=== PATIENT | female | born 1950 | race African-American/Black ===

== ENCOUNTER → 2016-07-15 | Outpatient (CLI) | payer BC | LOC: WI 09:28 | PROVIDERS: ATTEND Internal Medicine | DX: Z12.31 Encounter for screening mammogram for malignant neoplasm of breast (principal) | CPT/HCPCS: 77067; G0202 ==

== ENCOUNTER → 2016-07-19 | Outpatient (CLI) | payer BC | LOC: RAD 10:38 | PROVIDERS: ATTEND Internal Medicine | DX: R94.4 Abnormal results of kidney function studies (principal) | CPT/HCPCS: 76770 ==

== ENCOUNTER 2017-05-27 21:46 | Emergency (ER) | payer OTHER, MEDICARE ==
[2017-05-27] MEDS ORDERED: METHYLPREDNISOLONE ACETATE INJ 80 MG/1 ML VIAL IM PRN (22:55)
[2017-05-27] MEDS ORDERED: DIPHENHYDRAMINE HCL 50 MG/ML VIAL IM ONE (22:55)
--- NOTE | 2017-05-27 22:58 | ER Document Report ---
ED Allergic Reaction - General Chief Complaint: Allergic Reaction Stated Complaint: FACE SWELLING Time Seen by Provider: 05/27/17 22:26 Mode of Arrival: Ambulatory Information source: Patient Notes: 66 years old female who had an allergic reaction to lisinopril, with angioedema of the face and lips, was seen at the [facility] and given Solu-Medrol this morning. She returned saying that this evening the swelling has increased in size with swelling of both cheeks. But no difficulty in breathing no wheezing no other constitutional symptoms. TRAVEL OUTSIDE OF THE [place] IN LAST 30 DAYS: No - Related Data Allergies/Adverse Reactions: Iodine and Iodide Containing Produc Allergy (Verified 05/27/17 22:53) Past Medical History - General Information source: Patient - Social History Smoking Status: Never Smoker Chew tobacco use (# tins/day): No Frequency of alcohol use: Social Drug Abuse: None Family History: Reviewed & Not Pertinent Patient has suicidal ideation: No Patient has homicidal ideation: No - Past Medical History Cardiac Medical History: Reports: Hx Hypertension Pulmonary Medical History: Reports: Hx Asthma, Hx Bronchitis, Hx COPD, Hx Respiratory Failure Endocrine Medical History: Reports: Hx Hypothyroidism Renal/ Medical History: Denies: Hx Peritoneal Dialysis Musculoskeltal Medical History: Reports Hx Arthritis Past Surgical History: Reports: Hx Cholecystectomy - Immunizations Immunizations up to date: Yes Review of Systems - Review of Systems Notes: REVIEW OF SYSTEMS: CONSTITUTIONAL : Denies fever, chills, or sweats. Denies recent illness. EENT: Denies eye, ear, throat, or mouth pain or symptoms. Denies nasal or sinus congestion or discharge. Denies throat, tongue, or mouth swelling or difficulty swallowing. CARDIOVASCULAR: Denies chest pain. Denies palpitations or racing or irregular heart beat. Denies ankle edema. RESPIRATORY: Denies cough, cold, or chest congestion. Denies shortness of breath, difficulty breathing, or wheezing. GASTROINTESTINAL: Denies abdominal pain or distention. Denies nausea, vomiting , or diarrhea. Denies blood in vomitus, stools, or per rectum. Denies black, tarry stools. Denies constipation. GENITOURINARY: Denies difficulty urinating, painful urination, burning, frequency, blood in urine, or discharge. FEMALE GENITOURINARY: Denies vaginal bleeding, heavy or abnormal periods, irregular periods. Denies vaginal discharge or odor. MUSCULOSKELETAL: Denies back or neck pain or stiffness. Denies joint pain or swelling. SKIN: Denies rash, lesions or sores. HEMATOLOGIC : Denies easy bruising or bleeding. LYMPHATIC: Denies swollen, enlarged glands. NEUROLOGICAL: Denies confusion or altered mental status. Denies passing out or loss of consciousness. Denies dizziness or lightheadedness. Denies headache. Denies weakness or paralysis or loss of use of either side. Denies problems with gait or speech. Denies sensory loss, numbness, or tingling. Denies seizures. PSYCHIATRIC: Denies anxiety or stress. Denies depression, suicidal ideation, or homicidal ideation. ALL OTHER SYSTEMS REVIEWED AND NEGATIVE. PHYSICAL EXAMINATION: GENERAL: Well-appearing, well-nourished and in no acute distress. HEAD: Atraumatic, normocephalic. EYES: Pupils equal round and reactive to light, extraocular movements intact, conjunctiva are normal. ENT: Nares patent, oropharynx clear without exudates. Moist mucous membranes. Bilateral cheek swelling as well as lip swelling noted. NECK: Normal range of motion, supple without lymphadenopathy. No stridor LUNGS: Breath sounds clear to auscultation bilaterally and equal. No wheezes rales or rhonchi. HEART: Regular rate and rhythm without murmurs ABDOMEN: Soft, nontender, nondistended abdomen. No guarding, no rebound. No masses appreciated. Female : deferred Musculoskeletal: Normal range of motion, no pitting or edema. No cyanosis. NEUROLOGICAL: Cranial nerves grossly intact. Normal speech, normal gait. Normal sensory, motor exams PSYCH: Normal mood, normal affect. SKIN: Warm, Dry, normal turgor, no rashes or lesions noted. Dictation was performed using [employer] voice recognition software Physical Exam - Vital signs Vitals: Temp Pulse Resp BP Pulse Ox 98.4 F 69 20 142/68 H 96 05/27/17 22:00 05/27/17 22:00 05/27/17 22:00 05/27/17 22:00 05/27/17 22:00 Course - Re-evaluation Re-evalutation: 05/27/17 23:52 Given Depo-Medrol IM, Benadryl IM - Vital Signs Vital signs: Temp Pulse Resp BP Pulse Ox 98.4 F 69 20 142/68 H 96 05/27/17 22:00 05/27/17 22:00 05/27/17 22:00 05/27/17 22:00 05/27/17 22:00 Discharge - Discharge Clinical Impression: Angioedema Qualifiers: Encounter type: initial encounter Qualified Code(s): T78.3XXA - Angioneurotic edema, initial encounter Adverse effect of lisinopril Qualifiers: Encounter type: initial encounter Qualified Code(s): T46.4X5A - Adverse effect of hkoqutkxzwi-cqxqbrflnw-rfescp inhibitors, initial encounter Condition: Stable Disposition: HOME, SELF-CARE Instructions: Angioedema ([facility]) Prescriptions: Methylprednisolone [Medrol Dosepack (4 mg/Tab) 21 Tab/Dosepak] 4 mg PO ASDIR PRN #[id number] tab.ds.[id number] PRN Reason: Referrals: GENOVEVA WILLIAM MD [Primary Care Provider] - Follow up as needed
[2017-05-28 00:48] VITALS: BP 120/73
== END 2017-05-28 00:48 | disposition home or self-care (01) ==
LOC: ER 21:46
DX: T78.3XXA Angioneurotic edema, initial encounter (principal); T46.4X5A Adverse effect of angiotensin-converting-enzyme inhibitors, initial encounter
CPT/HCPCS: 99283; 96372; J1200; J1040

== ENCOUNTER → 2017-07-23 | Outpatient (CLI) | payer MEDICARE ==
--- NOTE | 2017-07-24 08:16 | WOMENS IMAGING REPORT ---
EXAM DESCRIPTION: 3D SCREENING MAMMO BILAT COMPLETED DATE/TIME: 07/23/2017 10:13 am REASON FOR STUDY: ROUTINE SCREENING;Z12.31 Z12.31 ENCNTR SCREEN MAMMOGRAM FOR MALIGNANT NEOPLASM OF MUNA COMPARISON: 2011 to 2016 TECHNIQUE: Standard craniocaudal and mediolateral oblique views of each breast recorded using digita l acquisition and breast tomosynthesis. LIMITATIONS: None. FINDINGS: RIGHT BREAST MASSES: No suspicious masses. CALCIFICATIONS: No new or suspicious calcifications. ARCHITECTURAL DISTORTION: None. DEVELOPING DENSITY: None. ASYMMETRY: Asymmetry seen only on the MLO film slightly superior 3.7 cm from nipple OTHER: No other significant findings. LEFT BREAST MASSES: No suspicious masses. CALCIFICATIONS: No new or suspicious calcifications. ARCHITECTURAL DISTORTION: None. DEVELOPING DENSITY: None. ASYMMETRY: None noted. OTHER: No other significant findings. Read with the assistance of CAD. .[facility] - R2 Cenova Version 1.3 .[facility] - R2 Cenova Version 1.3 .[facility] - R2 Cenova Version 2.4 .[facility] [place] - R2 Cenova Version 2.4 .[facility] - R2 Manager Provider Relations Version 9.2 IMPRESSION: Asymmetry in the right breast BREAST DENSITY: b. There are scattered areas of fibroglandular density. BIRAD: 0 Incomplete: Needs Additional Imaging Evaluation and/or prior Mammograms for Comparison. RECOMMENDATION: RECOMMENDED FOLLOW-UP: Spot compression and ultrasound. The patient will be contacted for additional imaging. COMMENT: The patient has been notified of the results by letter per SA requirements. Additional no tification policies are in place for contacting patient with suspicious or incomplete findings. Quality ID #[id number]: The [employer] recommends an annual screening mammogram for women aged 40 years or over. This facility utilizes a reminder system to ensure that all patients receive reminder letters, and/or direct phone calls for appointments. This includes reminders for routine scr eening mammograms, diagnostic mammograms, or other Breast Imaging Interventions when appropriate. Th is patient will be placed in the appropriate reminder system. The [employer] (ACR) has developed recommendations for screening MRI of the breast s in certain patient populations, to be used in conjunction with mammography. Breast MRI surveillanc e may be appropriate for women with more than 20% lifetime risk of developing breast cancer as deter mined by genetic testing, significant family history of the disease, or history of mantle radiation f or Hodgkins Disease. ACR Practice Guidelines 2008. DBT Technology DBT is a type of tomographic mammography. With conventional mammography, overlapping breast tissue ma y make lesions difficult to detect, even with good compression. DBT uses an x-ray tube that rotates a round the breast, taking images at different angles. These images are then combined to create thin sl ices of the breast that the radiologist can view as a 3D reconstruction. The Hologic unit can perform full-field digital mammograms (2D imaging); or DBT (3D imaging); or both, in a combination mode that quickly performs both the mammogram and the tomosynthesis scan while the breast is still compressed. RS 6045F: Fluoroscopic imaging is not utilized for breast tomosynthesis. TECHNICAL DOCUMENTATION: FINDING NUMBER: (1) ASSESSMENT: (1) JOB ID: [id number] [employer]- All Rights Reserved
== END ==
LOC: WI 09:43
PROVIDERS: ATTEND Internal Medicine
DX: Z12.31 Encounter for screening mammogram for malignant neoplasm of breast (principal)
CPT/HCPCS: 77063; 77067

== ENCOUNTER → 2018-07-24 | Outpatient (CLI) | payer MEDICARE ==
--- NOTE | 2018-07-24 13:16 | WOMENS IMAGING REPORT ---
EXAM DESCRIPTION: 3D SCREENING MAMMO BILAT COMPLETED DATE/TIME: 07/24/2018 10:10 am REASON FOR STUDY: Z12.31 ENCOUNTER FOR SCREENING MAMMOGRAM FOR MALIGNANT NEOPLASM OF BREAST Z12.31 ENCNTR SCREEN MAMMOGRAM FOR MALIGNANT NEOPLASM OF MUNA COMPARISON: Multiple since 2008 TECHNIQUE: Standard craniocaudal and mediolateral oblique views of each breast recorded using digita l acquisition and breast tomosynthesis. LIMITATIONS: None. FINDINGS: Findings present which are benign by mammographic criteria. No suspicious masses, calcifi cations or architectural distortion. Pertinent benign findings: Benign bilateral breast parenchymal calcifications. Old left breast stere otactic biopsy clip Read with the assistance of CAD. .[facility] - R2 Cenova Version 1.3 .[facility] - R2 Cenova Version 2.1 .[facility] - R2 Cenova Version 2.4 .[facility] [place] R2 Cenova Version 2.4 .[facility] [place] - R2 Tail Dogger Version 9.2 Benign mammographic findings may include one or more of the following: Smooth masses, popcorn/rim/co arse calcifications, asymmetries, post-procedure changes, and lesions with long-standing stability. IMPRESSION: BENIGN MAMMOGRAPHIC FINDINGS. BIRADS 2 BREAST DENSITY: b. There are scattered areas of fibroglandular density. BIRAD: 2 BENIGN FINDING(S) RECOMMENDATION: RECOMMENDATION: ROUTINE SCREENING COMMENT: The patient has been notified of the results by letter per SA requirements. Additional no tification policies are in place for contacting patient with suspicious or incomplete findings. Quality ID #[id number]: The [employer] recommends an annual screening mammogram for women aged 40 years or over. This facility utilizes a reminder system to ensure that all patients receive reminder letters, and/or direct phone calls for appointments. This includes reminders for routine scr eening mammograms, diagnostic mammograms, or other Breast Imaging Interventions when appropriate. Th is patient will be placed in the appropriate reminder system. The [employer] (ACR) has developed recommendations for screening MRI of the breast s in certain patient populations, to be used in conjunction with mammography. Breast MRI surveillanc e may be appropriate for women with more than 20% lifetime risk of developing breast cancer as deter mined by genetic testing, significant family history of the disease, or history of mantle radiation f or Hodgkins Disease. ACR Practice Guidelines 2008. DBT Technology DBT is a type of tomographic mammography. With conventional mammography, overlapping breast tissue ma y make lesions difficult to detect, even with good compression. DBT uses an x-ray tube that rotates a round the breast, taking images at different angles. These images are then combined to create thin sl ices of the breast that the radiologist can view as a 3D reconstruction. The gDecide unit can perform full-field digital mammograms (2D imaging); or DBT (3D imaging); or both, in a combination mode that quickly performs both the mammogram and the tomosynthesis scan while the breast is still compressed. PQRS 6045F: Fluoroscopic imaging is not utilized for breast tomosynthesis. TECHNICAL DOCUMENTATION: FINDING NUMBER: (1) ASSESSMENT: (1) JOB ID: [id number] [employer]- All Rights Reserved Reading location - IP/workstation name: [email or web address]
== END ==
LOC: WI 09:33
PROVIDERS: ATTEND Internal Medicine
DX: Z12.31 Encounter for screening mammogram for malignant neoplasm of breast (principal)
CPT/HCPCS: 77063; 77067

== ENCOUNTER 2018-08-16 12:33 | Inpatient (IN) | payer MEDICARE ==
--- NOTE | 2018-08-16 12:54 | ER Document Report ---
ED Medical Screen (RME) - General Chief Complaint: Shortness Of Breath Stated Complaint: SHORTNESS OF BREATH Time Seen by Provider: 08/16/18 12:53 Primary Care Provider: GENOVEVA WILLIAM MD [Primary Care Provider] - Follow up as needed Notes: Patient says that she is having difficulty with her breathing. It is worse when she lays down at night. It is causing her heart rate to go faster. Patient relatives reports she also has swelling of her legs, although the patient says she does not think is that bad and she wears support hose. She was just on vacation in [place] coming back this morning. Denies any chest pains. Denies any history of COPD or asthma. Former smoker but stopped over 20 years ago. Has not had any fevers. PMH: Thyroid condition, hypertension, no history of heart disease but family member says patient has CHF. TRAVEL OUTSIDE OF THE [place] IN LAST 30 DAYS: No - Related Data Allergies/Adverse Reactions: Iodine and Iodide Containing Produc Allergy (Verified 05/27/17 22:53) Past Medical History - Past Medical History Cardiac Medical History: Reports: Hx Hypertension Pulmonary Medical History: Reports: Hx Asthma, Hx Bronchitis, Hx COPD, Hx Respiratory Failure Endocrine Medical History: Reports: Hx Hypothyroidism Renal/ Medical History: Denies: Hx Peritoneal Dialysis Musculoskeltal Medical History: Reports Hx Arthritis Past Surgical History: Reports: Hx Section, Hx Cholecystectomy - Immunizations Immunizations up to date: Yes Physical Exam - Vital signs Vitals: Temp Pulse Resp BP Pulse Ox 98.8 F 88 16 154/67 H 97 08/16/18 12:43 08/16/18 12:43 08/16/18 12:43 08/16/18 12:43 08/16/18 12:43 Course - Vital Signs Vital signs: Temp Pulse Resp BP Pulse Ox 98.8 F 88 16 154/67 H 97 08/16/18 12:43 08/16/18 12:43 08/16/18 12:43 08/16/18 12:43 08/16/18 12:43 Doctor's Discharge - Discharge Referrals: GENOVEVA WILLIAM MD [Primary Care Provider] - Follow up as needed
[2018-08-16 13:43] LABS: APPEARANCE,URINE SLIGHTLY-CLOUDY; BILIRUBIN,URINE NEGATIVE (NEGATIVE); COLOR,URINE YELLOW; GLUCOSE, URINE NEGATIVE (NEGATIVE); KETONES,URINE NEGATIVE (NEGATIVE); LEUKOCYTE ESTERASE,URINE NEGATIVE (NEGATIVE); NITRITE,URINE NEGATIVE (NEGATIVE); PROTEIN,URINE 100 mg/dL (NEGATIVE); URINE SPECIFIC GRAVITY 1.014; UROBILINOGEN,URINE NEGATIVE mg/dL (<2.0)
[2018-08-16 13:50] LABS: ALANINE AMINOTRANSFERASE 25 U/L (9-52); ALBUMIN 4.1 g/dL (3.5-5.0); ALKALINE PHOSPHATASE 103 U/L (38-126); ANION GAP 10 (5-19); ASPARTATE AMINO TRANSFERASE 25 U/L (14-36); BILIRUBIN,DIRECT 0.3 mg/dL (0.0-0.4); BILIRUBIN,TOTAL 1.5 mg/dL (0.2-1.3); BLOOD UREA NITROGEN 26 mg/dL (7-20); CALCIUM 9.3 mg/dL (8.4-10.2); CARBON DIOXIDE 30 mmol/L (22-30); CHLORIDE 100 mmol/L (98-107); GLUCOSE 108 mg/dL (75-110); POTASSIUM 4.4 mmol/L (3.6-5.0); SODIUM 139.7 mmol/L (137-145); TOTAL PROTEIN 7.7 g/dL (6.3-8.2)
--- NOTE | 2018-08-16 13:59 | RADIOLOGY REPORT (SQ) ---
EXAM DESCRIPTION: CHEST 2 VIEWS COMPLETED DATE/TIME: 08/16/2018 1:47 pm REASON FOR STUDY: Increasing shortness of breath COMPARISON: None. EXAM PARAMETERS: NUMBER OF VIEWS: two views TECHNIQUE: Digital Frontal and Lateral radiographic views of the chest acquired. RADIATION DOSE: NA LIMITATIONS: none FINDINGS: LUNGS AND PLEURA: Coarsened interstitial markings bilaterally. No focal consolidation, pl eural effusion, or pneumothorax. MEDIASTINUM AND HILAR STRUCTURES: No masses or contour abnormalities. HEART AND VASCULAR STRUCTURES: Cardiac silhouette is mildly enlarged but unchanged in size. Central pulmonary vasculature is prominent. BONES: No acute findings. HARDWARE: None in the chest. OTHER: No other significant finding. IMPRESSION: Cardiomegaly with mild pulmonary vascular congestion. TECHNICAL DOCUMENTATION: JOB ID: [id number] [employer]- All Rights Reserved Reading location - IP/workstation name: [email or web address]
[2018-08-16 14:02] LABS: CREATINE KINASE MB 1.13 ng/mL (<4.55)
[2018-08-16 14:07] LABS: ABSOLUTE BASOPHILS # (AUTO) 0.2 10^3/uL (0.0-0.2); ABSOLUTE LYMPHOCYTES (AUTO) 1.5 10^3/uL (0.5-4.7); ABSOLUTE MONOCYTES (AUTO) 0.9 10^3/uL (0.1-1.4); ABSOLUTE NEUT (AUTO) 10.2 10^3/uL (1.7-8.2); BASOPHILS % (AUTO) 1.3 % (0-2); EOSINOPHILS % (AUTO) 0.2 % (0-6); HEMATOCRIT 37.9 % (36.0-47.0); HEMOGLOBIN 11.8 g/dL (12.0-15.5); LYMPHOCYTES % (AUTO) 11.4 % (13-45); MEAN CORPUSCULAR HEMOGLOBIN 27.1 pg (27.0-33.4); MEAN CORPUSCULAR HGB CONC 31.3 g/dL (32.0-36.0); MEAN CORPUSCULAR VOLUME 87 fl (80-97); MONOCYTES % (AUTO) 6.7 % (3-13); PLATELET COUNT 251 10^3/uL (150-450); RED BLOOD COUNT 4.36 10^6/uL (3.72-5.28); RED CELL DISTRIBUTION WIDTH 17.1 % (11.5-14.0); SEGMENTED NEUTROPHILS % (AUTO) 80.4 % (42-78); TOTAL CELLS COUNTED % (AUTO) 100 %; WHITE BLOOD COUNT 12.7 10^3/uL (4.0-10.5)
[2018-08-16 14:10] LABS: TROPONIN I 0.083 ng/mL
--- NOTE | 2018-08-16 14:30 | ER Document Report ---
ED General - General Chief Complaint: Shortness Of Breath Stated Complaint: SHORTNESS OF BREATH Time Seen by Provider: 08/16/18 12:53 Notes: 67 female with history of asthma requiring intubation, CHF, hypertension presents to the emergency department with acute shortness of breath. Patient states she was on vacation in [place] visiting her sisters and made the decision to drive home to come to the hospital because of the symptoms. Patient states that she has difficulty with breathing while laying flat. She does complain of bilateral lower extremity edema but states it is not that bad today. Nurse states that she heard audible expiratory wheezing in the room. Patient denies any fevers or recent illness, denies chest pain, denies diaphoresis, denies nausea or vomiting. Patient does not have history of diabetes. No other complaints. TRAVEL OUTSIDE OF THE [place] IN LAST 30 DAYS: No - Related Data Allergies/Adverse Reactions: Iodine and Iodide Containing Produc Allergy (Verified 05/27/17 22:53) Past Medical History - Social History Smoking Status: Former Smoker Family History: Reviewed & Not Pertinent Patient has suicidal ideation: No Patient has homicidal ideation: No - Past Medical History Cardiac Medical History: Reports: Hx Hypertension Pulmonary Medical History: Reports: Hx Asthma, Hx Bronchitis, Hx COPD, Hx Respiratory Failure Endocrine Medical History: Reports: Hx Hypothyroidism Renal/ Medical History: Denies: Hx Peritoneal Dialysis Musculoskeletal Medical History: Reports Hx Arthritis Past Surgical History: Reports: Hx Section, Hx Cholecystectomy - Immunizations Immunizations up to date: Yes Review of Systems - Review of Systems Constitutional: See HPI EENT: See HPI Cardiovascular: See HPI Respiratory: See HPI Gastrointestinal: See HPI Genitourinary: No symptoms reported Female Genitourinary: No symptoms reported Musculoskeletal: No symptoms reported Skin: No symptoms reported Hematologic/Lymphatic: No symptoms reported Neurological/Psychological: No symptoms reported Physical Exam - Vital signs Vitals: Temp Pulse Resp BP Pulse Ox 98.8 F 88 16 154/67 H 97 08/16/18 12:43 08/16/18 12:43 08/16/18 12:43 08/16/18 12:43 08/16/18 12:43 - Notes Notes: PHYSICAL EXAMINATION: Reviewed vital signs and charting by RN GENERAL: Alert, interacts well. No acute distress. HEAD: Normocephalic, atraumatic. EYES: Pupils equal, round. Extraocular movements intact. ENT: Oral mucosa moist NECK: Full range of motion. Supple. Trachea midline. LUNGS: Diminished breath sounds, expiratory wheezing upper lung ley bilateral. Nurse states that she heard audible expiratory wheezing without a stethoscope in the room, I could not hear that. Rales, or rhonchi. Patient looks like she is having difficulty taking in a deep breath and with exhalation. HEART: Regular rate and rhythm. Grade 3/6 systolic ejection murmur. Bilateral lower extremity 1+ pitting edema ABDOMEN: soft, non-tender. distended. Bowel sounds present in all 4 quadrants. no McBurney's point tenderness, no Page sign. EXTREMITIES: Moves all 4 extremities spontaneously. No edema, No cyanosis. PSYCH: Normal affect, normal mood. SKIN: Warm, dry, normal turgor. No rashes or lesions noted. Course - Re-evaluation Re-evalutation: 08/16/18 14:33 Patient is sitting comfortably in the bed. Nurse came to me and told me he put her on oxygen 4 L nasal cannula after her sats were in the low 80s when checking on her. Her sats quickly recovered and I saw her they were at 100% so I lowered him to 2 L. I heard diminished breath sounds but nurse states she heard audible wheezing. BNP was 1700 and on chest x-ray she did have interstitial edema. Patient could be suffering from volume overload. There is no trend on the BNP so unclear what previous was. 08/16/18 14:[address] Wilson, supervising physician. We will give a DuoNeb and dose of Solu-Medrol IV. Also, will give Lasix 20 mg IV 1 time. As this is undifferentiated if it is a respiratory component versus a cardiac component. I called the hospitalist who deferred to Dr. Whaley's team and I have put a page out to Dr. Albert to initiate an admission. 08/16/18 14:[address] Albert who requested a CT angios chest to assess for PE and a repeat troponin. Pending those results patient will be admitted to [facility]. 08/16/18 15:50 Went to talk to patient she was very somnolent. Nurse had to sternal rub her to arouse her. She attempted to get IV access and then afterwards we repositioned her and she sat up and woke up. She was a and O x3. She states she is just very tired. No hypoxia at all. Clarified what her iodine allergy was from and she said that it was from some "bad shellfish ". She said it caused her gout to have an acute flare. It does not appear that it is an anaphylactic reaction. If nurse is able to obtain adequate access we can proceed with a CTA chest as requested by Dr. Albert. 08/16/18 16:52 ABG ordered. PH 7.1 and PCO2 86. BiPAP ordered and will be placed on patient. Dr. Albert reconsult. Patient being upgraded to ICU. Got secondary to IV access so second troponin just now being drawn. Will premedicate if necessary to go to CTA as CT uncomfortable performing test with patient's allergy. 08/16/18 17:[address] Albert told him that CT was uncomfortable during the exam because of the allergy. Patient has had a previous CTA. Dr. Wilson then discussed with Dr. Albert that is low likelihood the patient is suffering from a PE and this most likely represents a COPD exacerbation consistent with previous history. - Vital Signs Vital signs: Temp Pulse Resp BP Pulse Ox 98.8 F 88 24 H 146/81 H 98 08/16/18 12:43 08/16/18 12:43 08/16/18 16:51 08/16/18 16:37 08/16/18 16:51 - Laboratory Result Diagrams: 08/16/18 13:13 08/16/18 13:13 Laboratory results interpreted by me: 08/16/18 08/16/18 08/16/18 13:13 13:13 13:13 WBC 12.7 H Hgb 11.8 L MCHC 31.3 L RDW 17.1 H Seg Neutrophils % 80.4 H Lymphocytes % 11.4 L Absolute Neutrophils 10.2 H Carbonic Acid ABG pH ABG pCO2 ABG pO2 ABG HCO3 ABG Total CO2 ABG O2 Saturation BUN 26 H Est GFR ( Amer) 52 L Est GFR (Non-Af Amer) 43 L Total Bilirubin 1.5 H NT-Pro-B Natriuret Pep 1700 H Urine Protein 08/16/18 08/16/18 13:13 16:15 WBC Hgb MCHC RDW Seg Neutrophils % Lymphocytes % Absolute Neutrophils Carbonic Acid 2.59 H ABG pH 7.18 L* ABG pCO2 86.0 H* ABG pO2 62.1 L ABG HCO3 31.4 H ABG Total CO2 34.0 H ABG O2 Saturation 84.3 L BUN Est GFR ( Amer) Est GFR (Non-Af Amer) Total Bilirubin NT-Pro-B Natriuret Pep Urine Protein 100 H Critical Care Note - Critical Care Note Total time excluding time spent on procedures (mins): 35 Comments: I have spent 35 minutes of critical care time obtaining history from patient or surrogate, discussions with consultants, development of treatment plan with armaan ent, evaluation of patient's response to treatment, examination of patient, ordering and performing treatments and interventions, ordering and review of laboratory studies, re-evaluation of patient's condition, ordering and review of radiographic studies and review of old charts for the treatment of hypercapnic respiratory failure, altered mental status. Discharge - Discharge Clinical Impression: Acute respiratory acidosis Acute respiratory failure Qualifiers: Respiratory failure complication: hypercapnia Qualified Code(s): J96.02 - Acute respiratory failure with hypercapnia Condition: Stable Disposition: ADMITTED INPATIENT Admitting Provider: Dr. Albert Unit Admitted: ICU
[2018-08-16] MEDS ORDERED: FUROSEMIDE INJ/PF 20 MG/2 ML SDV IV ONE (14:38)
[2018-08-16] MEDS ORDERED: METHYLPREDNISOLONE INJ 125 MG/2 ML SDV IV ONE (14:38)
[2018-08-16] MEDS ORDERED: IPRATROPIUM/ALBUTEROL 0.5-2.5 MG/3 ML AMPUL NEB ONE (14:38)
[2018-08-16] MEDS ORDERED: ACETAMINOPHEN 325 MG TABLET PO PRN (15:00)
[2018-08-16] MEDS ORDERED: SUCCINYLCHOLINE CHLORIDE INJ 200 MG/10 ML VIAL ONE (15:42)
[2018-08-16 16:40] LABS: ARTERIAL BLOOD BASE EXCESS 0.8 mmol/L; ARTERIAL BLOOD FIO2 2L; ARTERIAL BLOOD H2CO3 2.59 mmol/L (1.05-1.35); ARTERIAL BLOOD HCO3 31.4 mmol/L (20-24); ARTERIAL BLOOD O2 SATURATION 84.3 % (94-98); ARTERIAL BLOOD PO2 62.1 mmHg (80-100)
[2018-08-16 16:41] LABS: ARTERIAL BLOOD PH 7.18 (7.35-7.45)
--- NOTE | 2018-08-16 16:41 | EKG REPORT ---
SEVERITY:- ABNORMAL ECG - SINUS RHYTHM LEFT ANTERIOR FASCICULAR BLOCK LEFT VENTRICULAR HYPERTROPHY : Confirmed by: Jayce Leong MD 16-Aug-2018 16:41:19
[2018-08-16] MEDS: IPRATROPIUM/ALBUTEROL 0.5-2.5 MG/3 ML AMPUL NEB SCH ×2 (17:35→20:16)
[2018-08-16] MEDS: ENOXAPARIN SODIUM INJ 40 MG/0.4 ML DISP.SYRIN SUBCUT SCH (17:41)
--- NOTE | 2018-08-16 18:19 | PDOC H&P ---
History of Present Illness Admission Date/PCP: 08/16/18 17:00 GENOVEVA WILLIAM MD Patient complains of: Shortness of the breath History of Present Illness: SAMIA PACE is a 67 year old female This is a 67-year-old female with a history of the asthma COPD chronic respiratory failure required 2 L oxygen in the past but not using for the last 1 or 2 years according to the son with a history of the pulmonary hypertension's requiring intubation in the past came to the emergency department from the vacation from the [place] visiting her sister and feeling short of breath In the emergency departments patient's complaining of wheezing and short of breath and he initially x-ray of the chest shows some pulmonary vascular congestions and patient was giving the Solu-Medrol and respiratory treatments I order the ABG came back with this pH was 7.15 and the PCO2 was 86 and PO2 was 60 which is suggesting most likely acute respiratory failure with hypercapnia At this point patient's was put on the BiPAP discussed with Dr. Mcbride but in the ICU Also consult the surgery for putting the central line by difficult IV access Patient also giving the Solu-Medrol Discussed with the son on the bedside regarding the patient's current conditions and if is not getting better with ABG probably need to intubated Patient is currently lying in the bed altered due to the hypercapnic Past Medical History Cardiac Medical History: Reports: Hypertension Pulmonary Medical History: Reports: Asthma, Bronchitis, Chronic Obstructive Pulmonary Disease (COPD), Respiratory Failure Endocrine Medical History: Reports: Hypothyroidism Musculoskeltal Medical History: Reports: Arthritis Past Surgical History Past Surgical History: Reports: Section, Cholecystectomy Social History Smoking Status: Former Smoker Frequency of Alcohol Use: None Hx Recreational Drug Use: No Hx Prescription Drug Abuse: No Family History Family History: Reviewed & Not Pertinent Parental Family History Reviewed: Yes Children Family History Reviewed: Yes Sibling(s) Family History Reviewed.: Yes Medication/Allergy Home Medications: Levothyroxine Sodium [Synthroid] 150 mcg PO DAILY 11/03/14 Metoprolol Succinate [Toprol Xl] 100 mg PO DAILY 11/03/14 Olmesartan/Amlodipin/Hcthiazid [Tribenzor 40-10-25 mg Tablet] 1 each PO DAILY 11/03/14 Compress.stocking,Knee,Reg,Lrg [Truform Compression Stocking] 1 each MC DAILY #2 each 11/07/14 Tiotropium [place] [Spiriva Handihaler 18 mcg/dose (30 Dose)] 1 cap IH DAILY #30 capsule 11/07/14 Budesonide/Formoterol Fumarate [Symbicort HFA 160-4.5 mcg Inhaler 6 gm] 2 puff IH Q12 PRN 03/09/15 Dexamethasone [Dexpak] 1.5 mg PO DAILY #0 tab.ds.pk 03/13/15 Levofloxacin [Levaquin 750 mg Tablet] 750 mg PO DAILY #10 tab 03/13/15 Trazodone HCl [Desyrel 50 mg Tablet] 50 mg PO QHS #90 tablet 03/13/15 Methylprednisolone [Medrol Dosepack (4 mg/Tab) 21 Tab/Dosepak] 4 mg PO ASDIR PRN #21 tab.ds.pk 05/27/17 Allergies/Adverse Reactions: Iodine and Iodide Containing Produc Allergy (Verified 05/27/17 22:53) Review of Systems ROS unobtainable: Due to mental status All systems: reviewed and no additional remarkable complaints except as stated Physical Exam Vital Signs: Temp Pulse Resp BP Pulse Ox 98.8 F 88 24 H 146/81 H 98 08/16/18 12:43 08/16/18 12:43 08/16/18 16:51 08/16/18 16:37 08/16/18 16:51 Intake & Output 08/15/18 08/16/18 08/17/18 06:59 06:59 06:59 Weight 113 kg Physical Exam: Currently on a BiPAP and altered not respond very well but responds with the deep stimuli General appearance: PRESENT: mild distress Eye exam: PRESENT: PERRLA Mouth exam: PRESENT: neck supple Respiratory exam: PRESENT: decreased breath sounds Cardiovascular exam: PRESENT: +S1, +S2 GI/Abdominal exam: PRESENT: normal bowel sounds, soft Neurological exam: PRESENT: altered Skin exam: PRESENT: dry Results Laboratory Results: 08/16/18 13:13 08/16/18 13:13 08/16/18 08/16/18 08/16/18 13:13 13:13 13:13 WBC 12.7 H RBC 4.36 Hgb 11.8 L Hct 37.9 MCV 87 MCH 27.1 MCHC 31.3 L RDW 17.1 H Plt Count 251 Seg Neutrophils % 80.4 H Lymphocytes % 11.4 L Monocytes % 6.7 Eosinophils % 0.2 Basophils % 1.3 Absolute Neutrophils 10.2 H Absolute Lymphocytes 1.5 Absolute Monocytes 0.9 Absolute Eosinophils 0.0 Absolute Basophils 0.2 Carbonic Acid HCO3/H2CO3 Ratio ABG pH ABG pCO2 ABG pO2 ABG HCO3 ABG O2 Saturation ABG Base Excess FiO2 Sodium 139.7 Potassium 4.4 Chloride 100 Carbon Dioxide 30 Anion Gap 10 BUN 26 H Creatinine 1.25 Est GFR ( Amer) 52 L Est GFR (Non-Af Amer) 43 L Glucose 108 Calcium 9.3 Total Bilirubin 1.5 H AST 25 ALT 25 Alkaline Phosphatase 103 Total Protein 7.7 Albumin 4.1 Urine Color YELLOW Urine Appearance SLIGHTLY-CLOUDY Urine pH 5.0 Ur Specific [place] 1.014 Urine Protein 100 H Urine Glucose (UA) NEGATIVE Urine Ketones NEGATIVE Urine Blood NEGATIVE Urine Nitrite NEGATIVE Ur Leukocyte Esterase NEGATIVE Urine WBC (Auto) 0 Urine RBC (Auto) 1 08/16/18 16:15 WBC RBC Hgb Hct MCV MCH MCHC RDW Plt Count Seg Neutrophils % Lymphocytes % Monocytes % Eosinophils % Basophils % Absolute Neutrophils Absolute Lymphocytes Absolute Monocytes Absolute Eosinophils Absolute Basophils Carbonic Acid 2.59 H HCO3/H2CO3 Ratio 12:1 ABG pH 7.18 L* ABG pCO2 86.0 H* ABG pO2 62.1 L ABG HCO3 31.4 H ABG O2 Saturation 84.3 L ABG Base Excess 0.8 FiO2 2L Sodium Potassium Chloride Carbon Dioxide Anion Gap BUN Creatinine Est GFR ( Amer) Est GFR (Non-Af Amer) Glucose Calcium Total Bilirubin AST ALT Alkaline Phosphatase Total Protein Albumin Urine Color Urine Appearance Urine pH Ur Specific [place] Urine Protein Urine Glucose (UA) Urine Ketones Urine Blood Urine Nitrite Ur Leukocyte Esterase Urine WBC (Auto) Urine RBC (Auto) 08/16/18 08/16/18 13:13 16:42 CK-MB (CK-2) 1.13 Troponin I 0.083 0.079 NT-Pro-B Natriuret Pep 1700 H Impressions: Chest X-Ray 08/16/18 12:55 IMPRESSION: Cardiomegaly with mild pulmonary vascular congestion. Assessment & Plan - Diagnosis (1) Acute respiratory acidosis Is this a current diagnosis for this admission?: Yes Plan: Is a hypercapnic respiratory acidosis We will start the patient on a BiPAP Repeat the ABG in [address] Mcbride pulmonary If is not getting better needs to be intubated (2) Acute respiratory failure Qualifiers: Respiratory failure complication: hypercapnia Qualified Code(s): J96.02 - Acute respiratory failure with hypercapnia Is this a current diagnosis for this admission?: Yes Plan: Admit in the ICU Start on a BiPAP (3) Chronic venous hypertension Qualifiers: Laterality: bilateral Qualified Code(s): I87.303 - Chronic venous hyper tension (idiopathic) without complications of bilateral lower extremity Is this a current diagnosis for this admission?: Yes Plan: Get ultrasound for the lower extremity (4) Pulmonary hypertension Is this a current diagnosis for this admission?: Yes Plan: Will get the 2D echocardiogram Last echo was 2014 versus the pulmonary hypertension's (5) Status asthmaticus with COPD (chronic obstructive pulmonary disease) Is this a current diagnosis for this admission?: Yes (6) Congestive heart failure Qualifiers: Heart failure type: unspecified Heart failure chronicity: chronic Qualified Code(s): I50.9 - Heart failure, unspecified Is this a current diagnosis for this admission?: Yes Plan: Is likely a pulmonary hypertension's we will get the 2D echo to rule out the right-sided heart failure Consult cardiology - Time Time Spent: 50 to 70 Minutes Medications reviewed and adjusted accordingly: Yes Anticipated discharge: Home Within: Other - Inpatient Certification Based on my medical assessment, after consideration of the patient's c omorbidities, presenting symptoms, or acuity I expect that the services needed warrant INPATIENT care.: Yes I certify that my determination is in accordance with my understanding of Medicare's requirements for reasonable and necessary INPATIENT services [42 CFR 412.3e].: Yes Medical Necessity: Need Close Monitoring Due to Risk of Patient Decompensation, Need for IV Antibiotics Post Hospital Care: D/C Blanket Maker Documentation - Plan Summary Plan Summary: Admit to the ICU See ICU order Discussed with the pulmonary Discussed with the son on the bedside CT angiogram unable to do it it because some allergy to the iodine dye We will get a lower extremity ultrasound
[2018-08-16 19:05] LABS: CREATINE KINASE MB 1.07 ng/mL (<4.55); TROPONIN I 0.076 ng/mL
[2018-08-16 19:08] LABS: ARTERIAL BLOOD BASE EXCESS 0.5 mmol/L; ARTERIAL BLOOD H2CO3 2.75 mmol/L (1.05-1.35); ARTERIAL BLOOD HCO3 31.7 mmol/L (20-24); ARTERIAL BLOOD O2 SATURATION 90.5 % (94-98); ARTERIAL BLOOD PO2 76.6 mmHg (80-100); ARTERIAL BLOOD TOTAL CO2 34.5 mmol/L (21-25)
[2018-08-16 19:09] LABS: ARTERIAL BLOOD FIO2 45%
[2018-08-16 19:10] LABS: ARTERIAL BLOOD PH 7.16 (7.35-7.45)
[2018-08-16 19:11] LABS: ARTERIAL BLOOD PCO2 91.2 mmHg (35-45)
--- NOTE | 2018-08-16 19:16 | Operative Report ---
Operative Report DATE OF SURGERY: 08/16/18 PREOPERATIVE DIAGNOSIS: Respiratory failure POSTOPERATIVE DIAGNOSIS: Same OPERATION: Ultrasound directed insertion of triple lumen central venous access catheter right internal jugular vein SURGEON: GEOVANY VARGAS ANESTHESIA: Local TISSUE REMOVED OR ALTERED: None COMPLICATIONS: None ESTIMATED BLOOD LOSS: Minimal INTRAOPERATIVE FINDINGS: See below PROCEDURE: Patient was placed in Trendelenburg position right neck exposed, head rotated to the left, right neck prepped and draped in sterile fashion Surgical plan surgical timeout were conducted Using the Seldinger technique under ultrasound guidance real-time, after anesthetizing the skin with 1% plain lidocaine, a triple-lumen central venous access catheter was inserted into the right. There was excellent blood flow through all 3 lm. Catheter was flushed with saline solution, secured to the skin with 2 2-0 Ethilon sutures in a Biopatch applied. Patient tolerated procedure well ; portable upright chest x-ray pending at time dictation.
[2018-08-16] MEDS ORDERED: PROPOFOL 1,000 MG/100 ML INFUS..BTL IV ONE (19:26)
[2018-08-16] MEDS: PROPOFOL 1,000 MG/100 ML INFUS..BTL IV PRN ×2 (19:30→22:45)
[2018-08-16] MEDS: MIDAZOLAM HCL 50 MG/100 ML RTUINJ IV PRN (19:45)
[2018-08-16] MEDS ORDERED: MIDAZOLAM HCL 50 MG/100 ML RTUINJ ONE (19:46)
[2018-08-16] MEDS ORDERED: PHARMACY COMMUNICATION ORDER MC NR (20:15)
[2018-08-16] MEDS ORDERED: ACETAMINOPHEN 325 MG TABLET NG PRN (20:30)
[2018-08-16 20:45] LABS: ARTERIAL BLOOD BASE EXCESS 0.6 mmol/L; ARTERIAL BLOOD H2CO3 1.54 mmol/L (1.05-1.35); ARTERIAL BLOOD O2 SATURATION 94.6 % (94-98); ARTERIAL BLOOD PCO2 51.1 mmHg (35-45); ARTERIAL BLOOD PH 7.34 (7.35-7.45); ARTERIAL BLOOD PO2 77.7 mmHg (80-100); ARTERIAL BLOOD TOTAL CO2 28.6 mmol/L (21-25)
[2018-08-16 20:46] LABS: ARTERIAL BLOOD FIO2 50%
[2018-08-16] MEDS ORDERED: FAMOTIDINE 20 MG TABLET NG SCH (22:00)
[2018-08-16] MEDS: METHYLPREDNISOLONE INJ 125 MG/2 ML SDV IV SCH (22:42)
[2018-08-16] MEDS: FUROSEMIDE INJ/PF 20 MG/2 ML SDV IV SCH (22:42)
[2018-08-16] MEDS: FAMOTIDINE INJ/PF 20 MG/2 ML SDV IV SCH (22:43)
--- NOTE | 2018-08-16 22:44 | RADIOLOGY REPORT (SQ) ---
EXAM DESCRIPTION: XR CHEST 1 VIEW COMPLETED DATE/TME: 08/16/2018 19:14 CLINICAL HISTORY: 67 years Female, Status post right IJ central line insertion, ETT placement, NG placement COMPARISON: Same day. NUMBER OF VIEWS/TECHNIQUE: 1/AP FINDINGS: Moderate mixed airspace and interstitial opacities. Adequate appearing endotracheal tube. Likely adequate appearing enteric tube partially obscured. Adequate appearing right jugular central line. Moderately enlarged cardiac silhouette. No pneumothorax. Stable bony thorax. IMPRESSION: Interval intubation.
[2018-08-16] MEDS: CEFEPIME 1 GM/D5W RTU 1 GM/50 ML RTUPB IV SCH (22:49)
[2018-08-17 00:13] LABS: CREATINE KINASE MB 0.82 ng/mL (<4.55); TROPONIN I 0.062 ng/mL
[2018-08-17] MEDS: PROPOFOL 1,000 MG/100 ML INFUS..BTL IV PRN ×7 (02:00→21:13)
[2018-08-17] MEDS ORDERED: DEXTROSE 50%-WATER 25 GM/50 ML DISP.SYRIN IV PRN ×2 (02:37)
[2018-08-17] MEDS ORDERED: GLUCAGON,HUMAN RECOMB 1 MG INJ SUBCUT PRN (02:37)
[2018-08-17] MEDS ORDERED: DEXTROSE 40% GEL 15 GM TUBE PO PRN ×2 (02:37)
[2018-08-17] MEDS: CEFEPIME 1 GM/D5W RTU 1 GM/50 ML RTUPB IV SCH ×2 (05:06→17:34)
[2018-08-17] MEDS: METHYLPREDNISOLONE INJ 125 MG/2 ML SDV IV SCH ×3 (05:07→21:04)
[2018-08-17 05:29] LABS: HEMATOCRIT 35.8 % (36.0-47.0); HEMOGLOBIN 11.4 g/dL (12.0-15.5); MEAN CORPUSCULAR HEMOGLOBIN 27.3 pg (27.0-33.4); MEAN CORPUSCULAR HGB CONC 31.9 g/dL (32.0-36.0); MEAN CORPUSCULAR VOLUME 86 fl (80-97); PLATELET COUNT 246 10^3/uL (150-450); RED BLOOD COUNT 4.19 10^6/uL (3.72-5.28); RED CELL DISTRIBUTION WIDTH 16.6 % (11.5-14.0); WHITE BLOOD COUNT 8.5 10^3/uL (4.0-10.5)
[2018-08-17 05:44] LABS: ARTERIAL BLOOD BASE EXCESS 2.9 mmol/L; ARTERIAL BLOOD HCO3 26.4 mmol/L (20-24); ARTERIAL BLOOD PCO2 36.6 mmHg (35-45); ARTERIAL BLOOD PH 7.48 (7.35-7.45); ARTERIAL BLOOD PO2 85.4 mmHg (80-100); ARTERIAL BLOOD TOTAL CO2 27.5 mmol/L (21-25)
[2018-08-17 05:45] LABS: ARTERIAL BLOOD FIO2 50%
[2018-08-17 05:46] LABS: ABSOLUTE LYMPHOCYTES# (MANUAL) 0.8 10^3/uL (0.5-4.7); ABSOLUTE MONOCYTES # (MANUAL) 0.1 10^3/uL (0.1-1.4); ABSOLUTE NEUTROPHILS# (MANUAL) 7.7 10^3/uL (1.7-8.2); ANION GAP 7 (5-19); BASOPHILS % (MANUAL) 0 % (0-2); BLOOD UREA NITROGEN 32 mg/dL (7-20); CALCIUM 9.2 mg/dL (8.4-10.2); CARBON DIOXIDE 26 mmol/L (22-30); CHLORIDE 106 mmol/L (98-107); CREATINE KINASE 30 U/L (30-135); EOSINOPHILS % (MANUAL) 0 % (0-6); GLUCOSE 142 mg/dL (75-110); LYMPHOCYTES % (MANUAL) 9 % (13-45); MONOCYTES % (MANUAL) 1 % (3-13); NUCLEATED RED BLOOD CELLS 1 /100 WBC (0); POTASSIUM 4.3 mmol/L (3.6-5.0); SEGMENTED NEUTROPHILS % (MAN) 90 % (42-78); SODIUM 138.9 mmol/L (137-145); TOTAL CELLS COUNTED 100
[2018-08-17 05:47] LABS: TOXIC GRANULATION 1+; TOXIC VACUOLATION PRESENT
[2018-08-17 05:50] LABS: ANISOCYTOSIS 1+; HYPOCHROMASIA 1+; PLATELET COMMENT ADEQUATE; POLYCHROMASIA 1+; TEAR DROP CELLS SLIGHT
[2018-08-17 06:34] LABS: CREATINE KINASE MB 0.63 ng/mL (<4.55); TROPONIN I 0.057 ng/mL
[2018-08-17] MEDS: IPRATROPIUM/ALBUTEROL 0.5-2.5 MG/3 ML AMPUL NEB SCH ×4 (09:00→20:41)
[2018-08-17] MEDS: LEVOFLOXACIN 500 MG/D5W RTU 500 MG/100 ML RTUPB IV SCH (09:45)
[2018-08-17] MEDS: FUROSEMIDE INJ/PF 20 MG/2 ML SDV IV SCH ×2 (09:46→21:04)
[2018-08-17] MEDS: ENOXAPARIN SODIUM INJ 40 MG/0.4 ML DISP.SYRIN SUBCUT SCH (09:46)
[2018-08-17] MEDS: FAMOTIDINE INJ/PF 20 MG/2 ML SDV IV SCH ×2 (09:46→21:03)
--- NOTE | 2018-08-17 10:53 | PDOC CONSULTATION ---
Consultation Consult Date: 08/16/18 Attending physician:: JOAQUINA NAYAK Consult reason:: Acute on chronic respiratory failure History of Present Illness Admission Date/PCP: 08/16/18 17:00 GENOVEVA WILLIAM MD History of Present Illness: SAMIA PACE is a 67 year old female, presented to the ER after vacationing in [place] with increasing shortness of breath and some confusion she was initially given bronchodilators that she has a history of COPD asthma however this did not improve and use our subsequent ABG showed to be in hypercapnic hypoxemic respiratory failure she was placed on BiPAP subsequently transferred to the ICU given additional bronchodilators as well as IV steroids however respiratory rate continues to decline as did her mental status and she was subsequently intubated. Past Medical History Cardiac Medical History: Reports: Hypertension Pulmonary Medical History: Reports: Asthma, Bronchitis, Chronic Obstructive Pulmonary Disease (COPD), Respiratory Failure Endocrine Medical History: Reports: Hypothyroidism Musculoskeltal Medical History: Reports: Arthritis Traumatic Medical History: Denies: Traumatic Brain Injury Past Surgical History Past Surgical History: Reports: Section, Cholecystectomy Social History Smoking Status: Former Smoker Frequency of Alcohol Use: None Hx Recreational Drug Use: No Hx Prescription Drug Abuse: No - Advance Directive Resuscitation Status: Full Code Family History Parental Family History Reviewed: No Children Family History Reviewed: No Sibling(s) Family History Reviewed.: No Medication/Allergy Home Medications: Levothyroxine Sodium [Synthroid] 125 mcg PO Q6AM 08/17/18 Acetaminophen [Tylenol 325 mg Tablet] 650 mg NG Q4HP PRN tablet 08/25/18 Albuterol Sulfate [Proair Hfa Inhalation Aerosol 8.5 gm Mdi] 1 puff IH Q4 PRN #1 mdi 08/25/18 Apixaban [Eliquis 5 mg Tablet] 5 mg PO BID #60 tablet 08/25/18 Diltiazem HCl [Cardizem Cd 240 mg Capsule.cr] 240 mg PO DAILY #30 capsule.cr 08/25/18 Fluticasone/Umeclidin/Vilanter [Trelegy 100-62.5-25 Mcg Ellipta 14 Dose/Dpi] 1 each IH DAILY #2 inhaler 08/25/18 Allergies/Adverse Reactions: Iodine and Iodide Containing Produc Allergy (Verified 05/27/17 22:53) Review of Systems ROS unobtainable: Due to endotracheal tube, Due to mental status Physical Exam Vital Signs: Temp Pulse Resp BP Pulse Ox 97.5 F 59 L 20 120/61 97 08/17/18 08:00 08/17/18 08:00 08/17/18 08:00 08/17/18 08:00 08/17/18 08:00 Intake & Output 08/16/18 08/17/18 08/18/18 06:59 06:59 06:59 Intake Total 395 96 Output Total 1020 50 Balance -625 46 Weight 111.3 kg General appearance: PRESENT: no acute distress, disheveled, morbidly obese. ABSENT: cooperative Head exam: PRESENT: atraumatic, normocephalic Eye exam: PRESENT: conjunctiva pale. ABSENT: EOMI, nystagmus, periorbital swelling Mouth exam: PRESENT: dry mucosa, neck supple, tongue midline, other - ET tube in place Neck exam: ABSENT: carotid bruit, full ROM - [address], JVD, lymphadenopathy, meningismus, tenderness, thyromegaly, tracheal deviation, tracheostomy, other Respiratory exam: PRESENT: decreased breath sounds, prolonged expiratory phas, rales, rhonchi, unlabored. ABSENT: retraction, stridor, wheezes Cardiovascular exam: PRESENT: RRR, +S1, +S2, tachycardia - 35938 Pulses: PRESENT: normal radial pulses - 87893 GI/Abdominal exam: PRESENT: soft. ABSENT: tenderness - 67907 Gentrourinary exam: PRESENT: indwelling catheter Extremities exam: ABSENT: calf tenderness, clubbing, joint swelling Musculoskeletal exam: ABSENT: ambulatory, deformity, dislocation - 31181 Neurological exam: ABSENT: awake - 46331 Skin exam: PRESENT: dry, warm - 57121 Results Laboratory Results: 08/17/18 05:15 08/17/18 05:15 08/16/18 08/16/18 08/16/18 13:13 13:13 13:13 WBC 12.7 H RBC 4.36 Hgb 11.8 L Hct 37.9 MCV 87 MCH 27.1 MCHC 31.3 L RDW 17.1 H Plt Count 251 Seg Neutrophils % 80.4 H Lymphocytes % 11.4 L Monocytes % 6.7 Eosinophils % 0.2 Basophils % 1.3 Absolute Neutrophils 10.2 H Absolute Lymphocytes 1.5 Absolute Monocytes 0.9 Absolute Eosinophils 0.0 Absolute Basophils 0.2 Carbonic Acid HCO3/H2CO3 Ratio ABG pH ABG pCO2 ABG pO2 ABG HCO3 ABG O2 Saturation ABG Base Excess FiO2 Sodium 139.7 Potassium 4.4 Chloride 100 Carbon Dioxide 30 Anion Gap 10 BUN 26 H Creatinine 1.25 Est GFR ( Amer) 52 L Est GFR (Non-Af Amer) 43 L Glucose 108 Calcium 9.3 Magnesium Total Bilirubin 1.5 H AST 25 ALT 25 Alkaline Phosphatase 103 Total Protein 7.7 Albumin 4.1 Urine Color YELLOW Urine Appearance SLIGHTLY-CLOUDY Urine pH 5.0 Ur Specific [place] 1.014 Urine Protein 100 H Urine Glucose (UA) NEGATIVE Urine Ketones NEGATIVE Urine Blood NEGATIVE Urine Nitrite NEGATIVE Ur Leukocyte Esterase NEGATIVE Urine WBC (Auto) 0 Urine RBC (Auto) 1 08/16/18 08/16/18 08/16/18 16:15 18:20 20:15 WBC RBC Hgb Hct MCV MCH MCHC RDW Plt Count Seg Neutrophils % Lymphocytes % Monocytes % Eosinophils % Basophils % Absolute Neutrophils Absolute Lymphocytes Absolute Monocytes Absolute Eosinophils Absolute Basophils Carbonic Acid 2.59 H 2.75 H 1.54 H HCO3/H2CO3 Ratio 12:1 11:1 17:1 ABG pH 7.18 L* 7.16 L* 7.34 L ABG pCO2 86.0 H* 91.2 H* 51.1 H ABG pO2 62.1 L 76.6 L 77.7 L ABG HCO3 31.4 H 31.7 H 27.0 H ABG O2 Saturation 84.3 L 90.5 L 94.6 ABG Base Excess 0.8 0.5 0.6 FiO2 2L 45% 50% Sodium Potassium Chloride Carbon Dioxide Anion Gap BUN Creatinine Est GFR ( Amer) Est GFR (Non-Af Amer) Glucose Calcium Magnesium Total Bilirubin AST ALT Alkaline Phosphatase Total Protein Albumin Urine Color Urine Appearance Urine pH Ur Specific [place] Urine Protein Urine Glucose (UA) Urine Ketones Urine Blood Urine Nitrite Ur Leukocyte Esterase Urine WBC (Auto) Urine RBC (Auto) 08/17/18 08/17/18 08/17/18 05:15 05:15 05:32 WBC 8.5 RBC 4.19 Hgb 11.4 L Hct 35.8 L MCV 86 MCH 27.3 MCHC 31.9 L RDW 16.6 H Plt Count 246 Seg Neutrophils % Not Reportable Lymphocytes % Not Reportable Monocytes % Not Reportable Eosinophils % Not Reportable Basophils % Not Reportable Absolute Neutrophils Not Reportable Absolute Lymphocytes Not Reportable Absolute Monocytes Not Reportable Absolute Eosinophils Not Reportable Absolute Basophils Not Reportable Carbonic Acid 1.10 HCO3/H2CO3 Ratio 24:1 ABG pH 7.48 H ABG pCO2 36.6 ABG pO2 85.4 ABG HCO3 26.4 H ABG O2 Saturation 97.0 ABG Base Excess 2.9 FiO2 50% Sodium 138.9 Potassium 4.3 Chloride 106 Carbon Dioxide 26 Anion Gap 7 BUN 32 H Creatinine 1.37 H Est GFR ( Amer) 47 L Est GFR (Non-Af Amer) 39 L Glucose 142 H Calcium 9.2 Magnesium 2.4 H Total Bilirubin AST ALT Alkaline Phosphatase Total Protein Albumin Urine Color Urine Appearance Urine pH Ur Specific [place] Urine Protein Urine Glucose (UA) Urine Ketones Urine Blood Urine Nitrite Ur Leukocyte Esterase Urine WBC (Auto) Urine RBC (Auto) 08/16/18 08/16/18 08/16/18 13:13 16:42 18:20 Creatine Kinase 40 CK-MB (CK-2) 1.13 Troponin I 0.083 0.079 NT-Pro-B Natriuret Pep 1700 H 08/16/18 08/16/18 08/16/18 18:20 23:30 23:30 Creatine Kinase 33 CK-MB (CK-2) 1.07 0.82 Troponin I 0.076 0.062 NT-Pro-B Natriuret Pep 08/17/18 08/17/18 05:15 05:15 Creatine Kinase 30 CK-MB (CK-2) 0.63 Troponin I 0.057 NT-Pro-B Natriuret Pep 984 H Assessment & Plan - Diagnosis (1) Pulmonary hypertension due to chronic obstructive pulmonary disease Is this a current diagnosis for this admission?: Yes Plan: Chronic COPD (2) Acute on chronic respiratory failure with hypoxia and hypercapnia Is this a current diagnosis for this admission?: Yes Plan: Maintain adequate pH and SaO2 is necessary (3) Altered mental status Is this a current diagnosis for this admission?: Yes Plan: Lumbar puncture - Time Total Critical Time (Minutes): 55
--- NOTE | 2018-08-17 10:57 | RADIOLOGY REPORT (SQ) ---
EXAM DESCRIPTION: CHEST SINGLE VIEW COMPLETED DATE/TIME: 08/17/2018 6:28 am REASON FOR STUDY: pulm edema COMPARISON: None. NUMBER OF VIEWS: One view. TECHNIQUE: Single frontal radiographic image of the chest acquired. LIMITATIONS: None. FINDINGS: LUNGS AND PLEURA: Diffuse airspace disease with better definition of the left diaphragm co mpared to yesterday. No pneumothorax. MEDIASTINUM AND HEART: Stable heart size and mediastinal structures. SUPPORT DEVICES: Appropriate location without change. BONY STRUCTURES: No acute findings. HARDWARE: None. OTHER: No other significant finding. IMPRESSION: Slight improvement. No pneumothorax. Reading location - IP/workstation name: [email or web address]
--- NOTE | 2018-08-17 12:55 | RADIOLOGY REPORT (SQ) ---
EXAM DESCRIPTION: VENOUS BILATERAL LOWER COMPLETED DATE/TIME: 08/17/2018 12:49 pm REASON FOR STUDY: edema COMPARISON: 11/04/2014 TECHNIQUE: Dynamic and static sanchez scale and color images acquired of both lower extremity venous sy stems. Selected spectral images acquired with additional compression and augmentation maneuvers. Imag es stored on PACS. LIMITATIONS: None. FINDINGS: RIGHT LEG COMMON FEMORAL AND FEMORAL: Normal phasicity, compression and augmentation. No visualized echogenic m aterial on sanchez scale. No defects on color images. POPLITEAL: Normal compression and augmentation. No visualized echogenic material on sanchez scale. No de fects on color images. CALF VESSELS: Normal compression and augmentation. No visualized echogenic material on sanchez scale. No defects on color image. GSV AND SSV: Normal compression. No visualized echogenic material on sanchez scale. No defects on color images. ANY DEEP VENOUS INSUFFICIENCY: Not evaluated. ANY EVIDENCE OF POPLITEAL CYST: No. OTHER: No other significant finding. LEFT LEG COMMON FEMORAL AND FEMORAL: Normal phasicity, compression and augmentation. No visualized echogenic m aterial on sanchez scale. No defects on color images. POPLITEAL: Normal compression and augmentation. No visualized echogenic material on sanchez scale. No de fects on color images. CALF VESSELS: Normal compression and augmentation. No visualized echogenic material on sanchez scale. No defects on color images. GSV AND SSV: Normal compression. No visualized echogenic material on sanchez scale. No defects on color images. ANY DEEP VENOUS INSUFFICIENCY: Not evaluated. ANY EVIDENCE POPLITEAL CYST: No. OTHER: No other significant finding. IMPRESSION: NO EVIDENCE DVT OR SVT IN EITHER LEG. TECHNICAL DOCUMENTATION: JOB ID: [id number]- All Rights Reserved Reading location - IP/workstation name: [email or web address]
[2018-08-17] MEDS: MIDAZOLAM HCL 50 MG/100 ML RTUINJ IV PRN (18:04)
--- NOTE | 2018-08-17 20:30 | PDOC PROGRESS REPORT ---
Subjective Progress Note for:: 08/17/18 Subjective:: Patient was admitted yesterday for the management of acute hypercapnic respiratory failure due to COPD, she is intubated on mechanical ventilation. She was seen in the unit she on sedation but she is alert Reason For Visit: RESPIRATORY FAILURE Physical Exam Vital Signs: Temp Pulse Resp BP Pulse Ox 98.4 F 85 20 127/60 H 99 08/17/18 19:40 08/17/18 18:00 08/17/18 18:00 08/17/18 18:00 08/17/18 18:00 Intake & Output 08/16/18 08/17/18 08/18/18 06:59 06:59 06:59 Intake Total 395 596 Output Total 1020 730 Balance -625 -134 Weight 111.3 kg 111.3 kg General appearance: PRESENT: no acute distress Eye exam: PRESENT: PERRLA Respiratory exam: PRESENT: rhonchi Cardiovascular exam: PRESENT: +S1, +S2 GI/Abdominal exam: PRESENT: soft Neurological exam: PRESENT: alert Results Laboratory Results: 08/17/18 05:15 08/17/18 05:15 08/16/18 08/17/18 08/17/18 20:15 05:15 05:15 WBC 8.5 RBC 4.19 Hgb 11.4 L Hct 35.8 L MCV 86 MCH 27.3 MCHC 31.9 L RDW 16.6 H Plt Count 246 Seg Neutrophils % Not Reportable Lymphocytes % Not Reportable Monocytes % Not Reportable Eosinophils % Not Reportable Basophils % Not Reportable Absolute Neutrophils Not Reportable Absolute Lymphocytes Not Reportable Absolute Monocytes Not Reportable Absolute Eosinophils Not Reportable Absolute Basophils Not Reportable Carbonic Acid 1.54 H HCO3/H2CO3 Ratio 17:1 ABG pH 7.34 L ABG pCO2 51.1 H ABG pO2 77.7 L ABG HCO3 27.0 H ABG O2 Saturation 94.6 ABG Base Excess 0.6 FiO2 50% Sodium 138.9 Potassium 4.3 Chloride 106 Carbon Dioxide 26 Anion Gap 7 BUN 32 H Creatinine 1.37 H Est GFR ( Amer) 47 L Est GFR (Non-Af Amer) 39 L Glucose 142 H Calcium 9.2 Magnesium 2.4 H 08/17/18 05:32 WBC RBC Hgb Hct MCV MCH MCHC RDW Plt Count Seg Neutrophils % Lymphocytes % Monocytes % Eosinophils % Basophils % Absolute Neutrophils Absolute Lymphocytes Absolute Monocytes Absolute Eosinophils Absolute Basophils Carbonic Acid 1.10 HCO3/H2CO3 Ratio 24:1 ABG pH 7.48 H ABG pCO2 36.6 ABG pO2 85.4 ABG HCO3 26.4 H ABG O2 Saturation 97.0 ABG Base Excess 2.9 FiO2 50% Sodium Potassium Chloride Carbon Dioxide Anion Gap BUN Creatinine Est GFR ( Amer) Est GFR (Non-Af Amer) Glucose Calcium Magnesium 08/16/18 08/16/18 08/16/18 13:13 16:42 18:20 Creatine Kinase 40 CK-MB (CK-2) 1.13 Troponin I 0.083 0.079 NT-Pro-B Natriuret Pep 1700 H 08/16/18 08/16/18 08/16/18 18:20 23:30 23:30 Creatine Kinase 33 CK-MB (CK-2) 1.07 0.82 Troponin I 0.076 0.062 NT-Pro-B Natriuret Pep 08/17/18 08/17/18 05:15 05:15 Creatine Kinase 30 CK-MB (CK-2) 0.63 Troponin I 0.057 NT-Pro-B Natriuret Pep 984 H Impressions: Venous Doppler Study 08/17/18 00:00 IMPRESSION: NO EVIDENCE DVT OR SVT IN EITHER LEG. Chest X-Ray 08/17/18 06:00 IMPRESSION: Slight improvement. No pneumothorax. Assessment & Plan - Diagnosis (1) Acute respiratory failure with hypoxia and hypercapnia Is this a current diagnosis for this admission?: Yes Plan: Continue mechanical ventilation, pulmonary following (2) Chronic obstructive pulmonary disease with acute exacerbation Is this a current diagnosis for this admission?: Yes Plan: Continue intravenous Solu-Medrol, bronchodilators (3) Pneumonia Qualifiers: Pneumonia type: due to unspecified organism Laterality: unspecified laterality Lung location: unspecified part of lung Qualified Code(s): J18.9 - Pneumonia, unspecified organism Is this a current diagnosis for this admission?: Yes Plan: Continue IV antibiotic - Plan Summary Plan Summary: Patient presently not on tube feed there is a likelihood that she could be weaned off the ventilator in a very short while, she was admitted yesterday, if she remains on the ventilator for more than 7 2 hours tube feed will be initia richar.
--- NOTE | 2018-08-17 21:17 | XCELERA REPORT ---
[address] [address] Transthoracic Echocardiogram Report Name: SAMIA PACE Age: 67 yrs Gender: Female : 1950 Patient Status: Inpatient Patient Location: ICU^602^A Study Date: 08/17/2018 10:23 AM Height: 64 in Weight: 249 lb BSA: 2.1 m2 Procedure: A two-dimensional transthoracic echocardiogram with color flow and Doppler was performed. The study was technically difficult with many images being suboptimal in quality. Reason For Study: chf History: CHF. Ordering Physician: JOAQUINA NAYAK Performed By: Ailin Choi Interpretation Summary The left ventricle is normal in size. There is normal left ventricular wall thickness. LV EF is > than 65% The left ventricular ejection fraction is within normal limits. Doppler measurements suggest impaired left ventricular relaxation, which is associated with grade I/IV or mild diastolic dysfunction The left ventricular wall motion is normal. There is no thrombus. The right ventricle is not well visualized secondary to technical limitations The right ventricle is mild to moderately dilated. The right atrium is mildly dilated. The left atrium is mildly dilated. There is no evidence of mitral valve prolapse. There is no vegetation seen on the mitral valve. There is no mitral valve stenosis. There is a mild amount of mitral regurgitation There is no aortic valvular vegetation. There is mild aortic stenosis There is a peak gradient of 19 mm of Hg. No hemodynamically significant valvular aortic stenosis. There is no LVOT obstruction. There is a mild amount of aortic regurgitation There is no tricuspid stenosis. Eccentric moderate medially directed TR christen. Severe pulmonary hypertension.RVSP is 62 to 67 mm of Hg with RA mean of 15 tp 20. There is no pulmonic valvular stenosis. There is a trace amount of pulmonic regurgitation The aortic root is normal size. The inferior vena cava appeared dilated and decreased < 50% with respiration (RAP 15-20 mmHg) There is no pericardial effusion. MMode/2D Measurements & Calculations RVDd: 3.2 cm LVIDd: 5.1 cm FS: 39.2 % Ao root diam: 2.6 cm IVSd: 1.1 cm LVIDs: 3.1 cm EDV(Teich): 121.1 ml Ao root area: 5.5 cm2 LVPWd: 1.1 cm ESV(Teich): 37.1 ml LA dimension: 4.2 cm EF(Teich): 69.4 % Doppler Measurements & Calculations MV E max jenny: MV P1/2t max jenny: Ao V2 max: AI max jenny: 122.8 cm/sec 123.4 cm/sec 218.2 cm/sec 390.9 cm/sec MV A max jenny: MV P1/2t: 62.7 msec Ao max PG: AI max P.2 cm/sec MVA(P1/2t): 3.5 cm2 19.0 mmHg 61.1 mmHg MV E/A: 0.94 MV dec slope: AI dec slope: 316.2 cm/sec2 576.2 cm/sec2 AI P1/2t: MV dec time: 362.1 msec 0.20 sec LV V1 max PG: PA V2 max: PI end-d jenny: TR max jenny: 7.1 mmHg 146.2 cm/sec 156.1 cm/sec 342.1 cm/sec LV V1 max: PA max P.6 mmHg TR max P.3 cm/sec 46.8 mmHg AV P1/2t-pr_phl: MV P1/2t-pr_phl: 362.1 msec 62.7 msec Left Ventricle The left ventricle is normal in size. There is normal left ventricular wall thickness. LV EF is > than 65%. The left ventricular ejection fraction is within normal limits. Doppler measurements suggest impaired left ventricular relaxation, which is associated with grade I/IV or mild diastolic dysfunction. The left ventricular wall motion is normal. There is no thrombus. Right Ventricle The right ventricle is not well visualized secondary to technical limitations. The right ventricle is mild to moderately dilated. Atria The right atrium is mildly dilated. The left atrium is mildly dilated. Mitral Valve There is no evidence of mitral valve prolapse. There is no vegetation seen on the mitral valve. There is no mitral valve stenosis. There is a mild amount of mitral regurgitation. Aortic Valve There is no aortic valvular vegetation. There is mild aortic stenosis. There is a peak gradient of 19 mm of Hg. No hemodynamically significant valvular aortic stenosis. There is no LVOT obstruction. There is a mild amount of aortic regurgitation. Tricuspid Valve There is no tricuspid stenosis. Eccentric moderate medially directed TR christne. Severe pulmonary hypertension.RVSP is 62 to 67 mm of Hg with RA mean of 15 tp 20. Pulmonic Valve There is no pulmonic valvular stenosis. There is a trace amount of pulmonic regurgitation. Great Vessels The aortic root is normal size. The inferior vena cava appeared dilated and decreased < 50% with respiration (RAP 15-20 mmHg). Effusions There is no pericardial effusion. : JOAQUINA NAYAK > Luisa Perea
[2018-08-18] MEDS: PROPOFOL 1,000 MG/100 ML INFUS..BTL IV PRN ×8 (00:11→22:47)
[2018-08-18 03:35] LABS: HEMATOCRIT 34.2 % (36.0-47.0); MEAN CORPUSCULAR HEMOGLOBIN 27.3 pg (27.0-33.4); MEAN CORPUSCULAR HGB CONC 32.3 g/dL (32.0-36.0); MEAN CORPUSCULAR VOLUME 84 fl (80-97); PLATELET COUNT 246 10^3/uL (150-450); RED BLOOD COUNT 4.05 10^6/uL (3.72-5.28); RED CELL DISTRIBUTION WIDTH 17.1 % (11.5-14.0)
[2018-08-18 03:36] LABS: ARTERIAL BLOOD BASE EXCESS 3.5 mmol/L; ARTERIAL BLOOD H2CO3 1.02 mmol/L (1.05-1.35); ARTERIAL BLOOD HCO3 26.3 mmol/L (20-24); ARTERIAL BLOOD O2 SATURATION 97.4 % (94-98); ARTERIAL BLOOD PCO2 33.8 mmHg (35-45); ARTERIAL BLOOD PH 7.51 (7.35-7.45); ARTERIAL BLOOD PO2 86.8 mmHg (80-100); ARTERIAL BLOOD TOTAL CO2 27.3 mmol/L (21-25)
[2018-08-18 03:37] LABS: ARTERIAL BLOOD FIO2 50%
[2018-08-18 03:53] LABS: ABSOLUTE LYMPHOCYTES# (MANUAL) 0.6 10^3/uL (0.5-4.7); ABSOLUTE MONOCYTES # (MANUAL) 0.2 10^3/uL (0.1-1.4); ABSOLUTE NEUTROPHILS# (MANUAL) 11.2 10^3/uL (1.7-8.2); BAND NEUTROPHILS % (MANUAL) 1 % (3-5); BASOPHILS % (MANUAL) 0 % (0-2); EOSINOPHILS % (MANUAL) 0 % (0-6); LYMPHOCYTES % (MANUAL) 5 % (13-45); MONOCYTES % (MANUAL) 2 % (3-13); SEGMENTED NEUTROPHILS % (MAN) 92 % (42-78); TOTAL CELLS COUNTED 100
[2018-08-18 03:56] LABS: ANISOCYTOSIS 1+; HYPOCHROMASIA 1+; PLATELET COMMENT ADEQUATE; POIKILOCYTOSIS 1+; SCHISTOCYTES 1+; TEAR DROP CELLS 1+; TOXIC GRANULATION 1+; TOXIC VACUOLATION PRESENT
[2018-08-18 03:57] LABS: ANION GAP 8 (5-19); BLOOD UREA NITROGEN 37 mg/dL (7-20); CALCIUM 9.3 mg/dL (8.4-10.2); CARBON DIOXIDE 25 mmol/L (22-30); CHLORIDE 108 mmol/L (98-107); GLUCOSE 144 mg/dL (75-110); POTASSIUM 3.8 mmol/L (3.6-5.0); SODIUM 141.1 mmol/L (137-145)
[2018-08-18] MEDS: CEFEPIME 1 GM/D5W RTU 1 GM/50 ML RTUPB IV SCH ×2 (05:46→17:29)
[2018-08-18] MEDS: METHYLPREDNISOLONE INJ 125 MG/2 ML SDV IV SCH ×3 (05:47→21:41)
--- NOTE | 2018-08-18 06:38 | RADIOLOGY REPORT (SQ) ---
EXAM DESCRIPTION: XR CHEST 1 VIEW COMPLETED DATE/TME: 08/18/2018 06:00 CLINICAL HISTORY: 67 years, Female, [facility] COMPARISON: 08/17/2018 chest x-ray NUMBER OF VIEWS: 1 TECHNIQUE: Portable chest LIMITATIONS: None. FINDINGS: Stable cardiomegaly. Grossly stable indwelling lines and catheters. Osteopenia. Atheromatous change thoracic aorta. No pneumothorax. Minimal consolidative change left lung base. IMPRESSION: Little interval change copyright 2010 [employer]- All Rights Reserved
[2018-08-18] MEDS: IPRATROPIUM/ALBUTEROL 0.5-2.5 MG/3 ML AMPUL NEB SCH ×4 (08:20→20:19)
[2018-08-18] MEDS: FAMOTIDINE INJ/PF 20 MG/2 ML SDV IV SCH ×2 (09:23→21:41)
[2018-08-18] MEDS: LEVOFLOXACIN 500 MG/D5W RTU 500 MG/100 ML RTUPB IV SCH (09:23)
[2018-08-18] MEDS: ENOXAPARIN SODIUM INJ 40 MG/0.4 ML DISP.SYRIN SUBCUT SCH (09:23)
[2018-08-18] MEDS: FUROSEMIDE INJ/PF 20 MG/2 ML SDV IV SCH ×2 (09:23→21:41)
--- NOTE | 2018-08-18 22:52 | PDOC PROGRESS REPORT ---
Subjective Progress Note for:: 08/18/18 Subjective:: Patient seen by the bedside intubated but alert Reason For Visit: RESPIRATORY FAILURE Physical Exam Vital Signs: Temp Pulse Resp BP Pulse Ox 99.1 F 82 24 H 142/72 H 98 08/18/18 21:36 08/18/18 20:20 08/18/18 20:20 08/18/18 18:18 08/18/18 20:20 Intake & Output 08/17/18 08/18/18 08/19/18 06:59 06:59 06:59 Intake Total 395 1160 615 Output Total 1020 5200 6690 Balance -716 -294 -8115 Weight 111.3 kg 109.7 kg General appearance: PRESENT: no acute distress Eye exam: PRESENT: PERRLA Respiratory exam: PRESENT: clear to auscultation [email or web address] Cardiovascular exam: PRESENT: +S1, +S2 GI/Abdominal exam: PRESENT: soft Neurological exam: PRESENT: alert Results Laboratory Results: 08/18/18 03:26 08/18/18 03:26 08/18/18 08/18/18 08/18/18 03:26 03:26 03:26 WBC 12.0 H RBC 4.05 Hgb 11.0 L Hct 34.2 L MCV 84 MCH 27.3 MCHC 32.3 RDW 17.1 H Plt Count 246 Seg Neutrophils % Not Reportable Lymphocytes % Not Reportable Monocytes % Not Reportable Eosinophils % Not Reportable Basophils % Not Reportable Absolute Neutrophils Not Reportable Absolute Lymphocytes Not Reportable Absolute Monocytes Not Reportable Absolute Eosinophils Not Reportable Absolute Basophils Not Reportable Carbonic Acid 1.02 L HCO3/H2CO3 Ratio 25:1 ABG pH 7.51 H ABG pCO2 33.8 L ABG pO2 86.8 ABG HCO3 26.3 H ABG O2 Saturation 97.4 ABG Base Excess 3.5 FiO2 50% Sodium 141.1 Potassium 3.8 Chloride 108 H Carbon Dioxide 25 Anion Gap 8 BUN 37 H Creatinine 1.61 H Est GFR ( Amer) 39 L Est GFR (Non-Af Amer) 32 L Glucose 144 H Calcium 9.3 08/16/18 08/16/18 08/16/18 13:13 16:42 18:20 Creatine Kinase 40 CK-MB (CK-2) 1.13 Troponin I 0.083 0.079 NT-Pro-B Natriuret Pep 1700 H 08/16/18 08/16/18 08/16/18 18:20 23:30 23:30 Creatine Kinase 33 CK-MB (CK-2) 1.07 0.82 Troponin I 0.076 0.062 NT-Pro-B Natriuret Pep 08/17/18 08/17/18 05:15 05:15 Creatine Kinase 30 CK-MB (CK-2) 0.63 Troponin I 0.057 NT-Pro-B Natriuret Pep 984 H Impressions: Venous Doppler Study 08/17/18 00:00 IMPRESSION: NO EVIDENCE DVT OR SVT IN EITHER LEG. Chest X-Ray 08/18/18 06:00 IMPRESSION: Little interval change copyright 2011 [employer]- All Rights Reserved Assessment & Plan - Diagnosis (1) Acute respiratory failure with hypoxia and hypercapnia Is this a current diagnosis for this admission?: Yes Plan: Continue mechanical ventilation, pulmonary following (2) Chronic obstructive pulmonary disease with acute exacerbation Is this a current diagnosis for this admission?: Yes Plan: Continue intravenous Solu-Medrol, bronchodilators (3) Pneumonia Qualifiers: Pneumonia type: due to unspecified organism Laterality: unspecified laterality Lung location: unspecified part of lung Qualified Code(s): J18.9 - Pneumonia, unspecified organism Is this a current diagnosis for this admission?: Yes Plan: Continue IV antibiotic - Plan Summary Plan Summary: Patient on weaning protocol hopefully extubate tomorrow, will continue to hold on tube feeding
[2018-08-19] MEDS: PROPOFOL 1,000 MG/100 ML INFUS..BTL IV PRN ×3 (01:20→07:40)
[2018-08-19] MEDS: CEFEPIME 1 GM/D5W RTU 1 GM/50 ML RTUPB IV SCH ×2 (05:21→17:43)
[2018-08-19] MEDS: METHYLPREDNISOLONE INJ 125 MG/2 ML SDV IV SCH ×2 (05:22→14:41)
[2018-08-19 05:30] LABS: ARTERIAL BLOOD BASE EXCESS 4.3 mmol/L; ARTERIAL BLOOD H2CO3 1.11 mmol/L (1.05-1.35); ARTERIAL BLOOD HCO3 27.6 mmol/L (20-24); ARTERIAL BLOOD O2 SATURATION 97.3 % (94-98); ARTERIAL BLOOD PH 7.49 (7.35-7.45); ARTERIAL BLOOD PO2 87.7 mmHg (80-100); ARTERIAL BLOOD TOTAL CO2 28.8 mmol/L (21-25)
[2018-08-19 05:32] LABS: ARTERIAL BLOOD FIO2 40%
[2018-08-19 05:33] LABS: HEMATOCRIT 36.4 % (36.0-47.0); HEMOGLOBIN 11.7 g/dL (12.0-15.5); MEAN CORPUSCULAR HEMOGLOBIN 27.1 pg (27.0-33.4); MEAN CORPUSCULAR HGB CONC 32.1 g/dL (32.0-36.0); MEAN CORPUSCULAR VOLUME 84 fl (80-97); PLATELET COUNT 259 10^3/uL (150-450); RED BLOOD COUNT 4.33 10^6/uL (3.72-5.28); RED CELL DISTRIBUTION WIDTH 17.3 % (11.5-14.0); WHITE BLOOD COUNT 9.3 10^3/uL (4.0-10.5)
[2018-08-19 05:46] LABS: ANION GAP 9 (5-19); BLOOD UREA NITROGEN 42 mg/dL (7-20); CALCIUM 9.7 mg/dL (8.4-10.2); CARBON DIOXIDE 26 mmol/L (22-30); CHLORIDE 110 mmol/L (98-107); GLUCOSE 137 mg/dL (75-110); POTASSIUM 3.8 mmol/L (3.6-5.0); SODIUM 145.1 mmol/L (137-145)
[2018-08-19 06:24] LABS: ABSOLUTE LYMPHOCYTES# (MANUAL) 0.5 10^3/uL (0.5-4.7); ABSOLUTE MONOCYTES # (MANUAL) 0.3 10^3/uL (0.1-1.4); ABSOLUTE NEUTROPHILS# (MANUAL) 8.6 10^3/uL (1.7-8.2); BAND NEUTROPHILS % (MANUAL) 1 % (3-5); BASOPHILS % (MANUAL) 0 % (0-2); EOSINOPHILS % (MANUAL) 0 % (0-6); LYMPHOCYTES % (MANUAL) 5 % (13-45); MONOCYTES % (MANUAL) 3 % (3-13); SEGMENTED NEUTROPHILS % (MAN) 91 % (42-78); TOTAL CELLS COUNTED 100
[2018-08-19 06:25] LABS: ANISOCYTOSIS 1+; HYPOCHROMASIA 1+; PLATELET COMMENT ADEQUATE; POLYCHROMASIA 1+
[2018-08-19] MEDS: IPRATROPIUM/ALBUTEROL 0.5-2.5 MG/3 ML AMPUL NEB SCH ×4 (07:56→19:57)
--- NOTE | 2018-08-19 08:11 | RADIOLOGY REPORT (SQ) ---
EXAM DESCRIPTION: CHEST SINGLE VIEW COMPLETED DATE/TIME: 08/19/2018 6:57 am REASON FOR STUDY: resp failure COMPARISON: 08/18/2018 NUMBER OF VIEWS: One view. TECHNIQUE: Single frontal radiographic image of the chest acquired. LIMITATIONS: None. FINDINGS: LUNGS AND PLEURA: Stable appearance. MEDIASTINUM AND HILAR STRUCTURES: Stable heart size and mediastinal structures. HEART AND VASCULAR STRUCTURES: Stable appearance. SUPPORT DEVICES: Appropriate location without change. BONES: No acute findings. OTHER: No other significant finding. IMPRESSION: STABLE APPEARANCE OF THE CHEST. SUPPORT DEVICES UNCHANGED. TECHNICAL DOCUMENTATION: JOB ID: [id number] [employer]- All Rights Reserved Reading location - IP/workstation name: [email or web address]
[2018-08-19] MEDS: LEVOFLOXACIN 500 MG/D5W RTU 500 MG/100 ML RTUPB IV SCH (11:07)
[2018-08-19] MEDS: FAMOTIDINE INJ/PF 20 MG/2 ML SDV IV SCH ×2 (11:08→21:29)
[2018-08-19] MEDS: FUROSEMIDE INJ/PF 20 MG/2 ML SDV IV SCH ×2 (11:08→21:29)
[2018-08-19] MEDS: ENOXAPARIN SODIUM INJ 40 MG/0.4 ML DISP.SYRIN SUBCUT SCH (11:09)
--- NOTE | 2018-08-19 13:12 | PDOC PROGRESS REPORT ---
Subjective Progress Note for:: 08/19/18 Subjective:: Intubated awake i Reason For Visit: RESPIRATORY FAILURE Physical Exam Vital Signs: Temp Pulse Resp BP Pulse Ox 98.1 F 64 20 176/80 H 97 08/19/18 08:00 08/19/18 08:00 08/19/18 08:00 08/19/18 08:00 08/19/18 08:00 Intake & Output 08/18/18 08/19/18 08/20/18 06:59 06:59 06:59 Intake Total 1160 827 134 Output Total 1930 3120 200 Balance -770 -2293 -66 Weight 109.7 kg 109.8 kg General appearance: PRESENT: no acute distress, disheveled, morbidly obese Head exam: PRESENT: atraumatic, normocephalic Eye exam: PRESENT: conjunctiva pale, EOMI. ABSENT: nystagmus, periorbital swelling, scleral icterus Mouth exam: PRESENT: dry mucosa, neck supple, tongue midline, other - ET tube Neck exam: ABSENT: carotid bruit, full ROM, JVD, lymphadenopathy, meningismus, tenderness, thyromegaly, tracheal deviation, tracheostomy, other Respiratory exam: PRESENT: decreased breath sounds, prolonged expiratory phas, rhonchi, unlabored. ABSENT: rales, retraction, stridor Cardiovascular exam: PRESENT: RRR, +S1, +S2 Pulses: PRESENT: normal radial pulses GI/Abdominal exam: PRESENT: soft. ABSENT: tenderness Gentrourinary exam: PRESENT: indwelling catheter Extremities exam: ABSENT: calf tenderness, clubbing, joint swelling Musculoskeletal exam: ABSENT: deformity, dislocation Neurological exam: PRESENT: altered, awake Skin exam: PRESENT: dry, warm Results Laboratory Results: 08/19/18 05:15 08/19/18 05:15 08/19/18 08/19/18 08/19/18 05:15 05:15 05:15 WBC 9.3 RBC 4.33 Hgb 11.7 L Hct 36.4 MCV 84 MCH 27.1 MCHC 32.1 RDW 17.3 H Plt Count 259 Seg Neutrophils % Not Reportable Lymphocytes % Not Reportable Monocytes % Not Reportable Eosinophils % Not Reportable Basophils % Not Reportable Absolute Neutrophils Not Reportable Absolute Lymphocytes Not Reportable Absolute Monocytes Not Reportable Absolute Eosinophils Not Reportable Absolute Basophils Not Reportable Carbonic Acid 1.11 HCO3/H2CO3 Ratio 24:1 ABG pH 7.49 H ABG pCO2 37.0 ABG pO2 87.7 ABG HCO3 27.6 H ABG O2 Saturation 97.3 ABG Base Excess 4.3 FiO2 40% Sodium 145.1 H Potassium 3.8 Chloride 110 H Carbon Dioxide 26 Anion Gap 9 BUN 42 H Creatinine 1.47 H Est GFR ( Amer) 43 L Est GFR (Non-Af Amer) 36 L Glucose 137 H Calcium 9.7 Magnesium 2.7 H 08/16/18 08/16/18 08/16/18 13:13 16:42 18:20 Creatine Kinase 40 CK-MB (CK-2) 1.13 Troponin I 0.083 0.079 NT-Pro-B Natriuret Pep 1700 H 08/16/18 08/16/18 08/16/18 18:20 23:30 23:30 Creatine Kinase 33 CK-MB (CK-2) 1.07 0.82 Troponin I 0.076 0.062 NT-Pro-B Natriuret Pep 08/17/18 08/17/18 05:15 05:15 Creatine Kinase 30 CK-MB (CK-2) 0.63 Troponin I 0.057 NT-Pro-B Natriuret Pep 984 H Impressions: Venous Doppler Study 08/17/18 00:00 IMPRESSION: NO EVIDENCE DVT OR SVT IN EITHER LEG. Chest X-Ray 08/19/18 06:00 IMPRESSION: STABLE APPEARANCE OF THE CHEST. SUPPORT DEVICES UNCHANGED. Assessment & Plan - Diagnosis (1) Pulmonary hypertension due to chronic obstructive pulmonary disease Is this a current diagnosis for this admission?: Yes Plan: Chronic COPD (2) Acute on chronic respiratory failure with hypoxia and hypercapnia Is this a current diagnosis for this admission?: Yes Plan: Respiratory rate, minute ventilation, FiO2, airway pressures all suggest successful extubation will proceed with extubation (3) Altered mental status Is this a current diagnosis for this admission?: Yes Plan: SHE HAS BEEN stable during sedation vacation - Time Total Critical Time (Minutes): 55
--- NOTE | 2018-08-19 18:32 | PDOC PROGRESS REPORT ---
Subjective Progress Note for:: 08/19/18 Subjective:: Patient was seen by the bedside, she was extubated today Reason For Visit: RESPIRATORY FAILURE Physical Exam Vital Signs: Temp Pulse Resp BP Pulse Ox 98.1 F 74 21 H 162/90 H 95 08/19/18 14:18 08/19/18 16:00 08/19/18 18:00 08/19/18 17:18 08/19/18 17:18 Intake & Output 08/18/18 08/19/18 08/20/18 06:59 06:59 06:59 Intake Total 1160 827 234 Output Total 1930 0590 9202 Balance -242 -1637 -7471 Weight 109.7 kg 109.8 kg General appearance: PRESENT: no acute distress Eye exam: PRESENT: PERRLA Respiratory exam: PRESENT: rhonchi Cardiovascular exam: PRESENT: +S1, +S2 GI/Abdominal exam: PRESENT: soft Neurological exam: PRESENT: alert Results Laboratory Results: 08/19/18 05:15 08/19/18 05:15 08/19/18 08/19/18 08/19/18 05:15 05:15 05:15 WBC 9.3 RBC 4.33 Hgb 11.7 L Hct 36.4 MCV 84 MCH 27.1 MCHC 32.1 RDW 17.3 H Plt Count 259 Seg Neutrophils % Not Reportable Lymphocytes % Not Reportable Monocytes % Not Reportable Eosinophils % Not Reportable Basophils % Not Reportable Absolute Neutrophils Not Reportable Absolute Lymphocytes Not Reportable Absolute Monocytes Not Reportable Absolute Eosinophils Not Reportable Absolute Basophils Not Reportable Carbonic Acid 1.11 HCO3/H2CO3 Ratio 24:1 ABG pH 7.49 H ABG pCO2 37.0 ABG pO2 87.7 ABG HCO3 27.6 H ABG O2 Saturation 97.3 ABG Base Excess 4.3 FiO2 40% Sodium 145.1 H Potassium 3.8 Chloride 110 H Carbon Dioxide 26 Anion Gap 9 BUN 42 H Creatinine 1.47 H Est GFR ( Amer) 43 L Est GFR (Non-Af Amer) 36 L Glucose 137 H Calcium 9.7 Magnesium 2.7 H 08/16/18 20:15 Tracheal Aspirate Gram Stain - Final 08/16/18 20:15 Tracheal Aspirate Sputum Culture - Final NORMAL MARLENY 08/16/18 08/16/18 08/16/18 13:13 16:42 18:20 Creatine Kinase 40 CK-MB (CK-2) 1.13 Troponin I 0.083 0.079 NT-Pro-B Natriuret Pep 1700 H 08/16/18 08/16/18 08/16/18 18:20 23:30 23:30 Creatine Kinase 33 CK-MB (CK-2) 1.07 0.82 Troponin I 0.076 0.062 NT-Pro-B Natriuret Pep 08/17/18 08/17/18 05:15 05:15 Creatine Kinase 30 CK-MB (CK-2) 0.63 Troponin I 0.057 NT-Pro-B Natriuret Pep 984 H Impressions: Venous Doppler Study 08/17/18 00:00 IMPRESSION: NO EVIDENCE DVT OR SVT IN EITHER LEG. Chest X-Ray 08/19/18 06:00 IMPRESSION: STABLE APPEARANCE OF THE CHEST. SUPPORT DEVICES UNCHANGED. Assessment & Plan - Diagnosis (1) Acute respiratory failure with hypoxia and hypercapnia Is this a current diagnosis for this admission?: Yes (2) Chronic obstructive pulmonary disease with acute exacerbation Is this a current diagnosis for this admission?: Yes (3) Pneumonia Qualifiers: Pneumonia type: due to unspecified organism Laterality: unspecified laterality Lung location: unspecified part of lung Qualified Code(s): J18.9 - Pneumonia, unspecified organism Is this a current diagnosis for this admission?: Yes Plan: Patient is extubated, continue treatment, she will be transferred to stepdown unit
[2018-08-19] MEDS ORDERED: PREDNISONE 20 MG TABLET PO SCH (18:45)
[2018-08-19] MEDS: LEVOTHYROXINE SODIUM 0.1 MG TABLET PO SCH (20:02)
[2018-08-19] MEDS: LEVOTHYROXINE SODIUM 0.025 MG TABLET PO SCH (20:02)
[2018-08-19] MEDS: PREDNISONE 20 MG TABLET PO SCH (20:02)
[2018-08-20] MEDS: CEFEPIME 1 GM/D5W RTU 1 GM/50 ML RTUPB IV SCH ×2 (05:40→17:54)
[2018-08-20] MEDS: LEVOTHYROXINE SODIUM 0.1 MG TABLET PO SCH (05:41)
[2018-08-20] MEDS: LEVOTHYROXINE SODIUM 0.025 MG TABLET PO SCH (05:41)
[2018-08-20] MEDS ORDERED: (PENDING PHARMACY ID) (Levothyroxine Sodium [Synthroid] 125 MCG) PO SCH (06:00)
[2018-08-20 06:26] LABS: ARTERIAL BLOOD BASE EXCESS 1.4 mmol/L; ARTERIAL BLOOD FIO2 24%; ARTERIAL BLOOD H2CO3 1.77 mmol/L (1.05-1.35); ARTERIAL BLOOD O2 SATURATION 87.1 % (94-98); ARTERIAL BLOOD PCO2 58.7 mmHg (35-45); ARTERIAL BLOOD PH 7.31 (7.35-7.45); ARTERIAL BLOOD PO2 57.9 mmHg (80-100); ARTERIAL BLOOD TOTAL CO2 30.8 mmol/L (21-25)
[2018-08-20 06:29] LABS: HEMATOCRIT 38.6 % (36.0-47.0); HEMOGLOBIN 12.4 g/dL (12.0-15.5); MEAN CORPUSCULAR HEMOGLOBIN 27.2 pg (27.0-33.4); MEAN CORPUSCULAR HGB CONC 32.1 g/dL (32.0-36.0); MEAN CORPUSCULAR VOLUME 85 fl (80-97); PLATELET COUNT 239 10^3/uL (150-450); RED BLOOD COUNT 4.54 10^6/uL (3.72-5.28); RED CELL DISTRIBUTION WIDTH 17.3 % (11.5-14.0); WHITE BLOOD COUNT 9.6 10^3/uL (4.0-10.5)
[2018-08-20 06:44] LABS: ALANINE AMINOTRANSFERASE 44 U/L (9-52); ALBUMIN 3.8 g/dL (3.5-5.0); ALKALINE PHOSPHATASE 79 U/L (38-126); ANION GAP 10 (5-19); ASPARTATE AMINO TRANSFERASE 43 U/L (14-36); BILIRUBIN,DIRECT 0.2 mg/dL (0.0-0.4); BILIRUBIN,TOTAL 0.7 mg/dL (0.2-1.3); BLOOD UREA NITROGEN 45 mg/dL (7-20); CALCIUM 9.8 mg/dL (8.4-10.2); CARBON DIOXIDE 30 mmol/L (22-30); CHLORIDE 106 mmol/L (98-107); GLUCOSE 104 mg/dL (75-110); POTASSIUM 4.4 mmol/L (3.6-5.0); SODIUM 145.5 mmol/L (137-145); TOTAL PROTEIN 7.7 g/dL (6.3-8.2)
[2018-08-20 07:28] LABS: ABSOLUTE LYMPHOCYTES# (MANUAL) 0.6 10^3/uL (0.5-4.7); ABSOLUTE MONOCYTES # (MANUAL) 0.4 10^3/uL (0.1-1.4); ABSOLUTE NEUTROPHILS# (MANUAL) 8.6 10^3/uL (1.7-8.2); BASOPHILS % (MANUAL) 0 % (0-2); EOSINOPHILS % (MANUAL) 0 % (0-6); HYPOCHROMASIA 1+; LYMPHOCYTES % (MANUAL) 6 % (13-45); MONOCYTES % (MANUAL) 4 % (3-13); POIKILOCYTOSIS 1+; SEGMENTED NEUTROPHILS % (MAN) 90 % (42-78); TOTAL CELLS COUNTED 100
[2018-08-20 07:29] LABS: PLATELET COMMENT ADEQUATE; STOMATOCYTES 1+
[2018-08-20] MEDS: IPRATROPIUM/ALBUTEROL 0.5-2.5 MG/3 ML AMPUL NEB SCH ×4 (07:43→20:33)
--- NOTE | 2018-08-20 09:35 | RADIOLOGY REPORT (SQ) ---
EXAM DESCRIPTION: CHEST SINGLE VIEW COMPLETED DATE/TIME: 08/20/2018 8:44 am REASON FOR STUDY: pna COMPARISON: Chest films 08/16/2018, 08/17/2018, 08/18/2018, 08/19/2018 EXAM PARAMETERS: NUMBER OF VIEWS: One view. TECHNIQUE: Single frontal radiographic view of the chest acquired. RADIATION DOSE: NA LIMITATIONS: None. FINDINGS: LUNGS AND PLEURA: Persistent left retrocardiac air bronchograms from consolidation atelect asis versus pneumonia. This is unchanged. No pleural effusions. No pneumothorax. No gross pulmonary edema. MEDIASTINUM AND HILAR STRUCTURES: No masses. Contour normal. HEART AND VASCULAR STRUCTURES: Stable moderate cardiomegaly BONES: No acute findings. HARDWARE: Right jugular central line tip in the right atrium OTHER: No other significant finding. IMPRESSION: Persistent left retrocardiac air bronchograms from consolidation TECHNICAL DOCUMENTATION: JOB ID: [id number] [employer]- All Rights Reserved Reading location - IP/workstation name: [email or web address]
[2018-08-20] MEDS: FAMOTIDINE INJ/PF 20 MG/2 ML SDV IV SCH ×2 (10:33→21:32)
[2018-08-20] MEDS: PREDNISONE 20 MG TABLET PO SCH (10:34)
[2018-08-20] MEDS: FUROSEMIDE INJ/PF 20 MG/2 ML SDV IV SCH ×2 (10:34→21:32)
[2018-08-20] MEDS: ENOXAPARIN SODIUM INJ 40 MG/0.4 ML DISP.SYRIN SUBCUT SCH (10:35)
[2018-08-20] MEDS: LEVOFLOXACIN 500 MG/D5W RTU 500 MG/100 ML RTUPB IV SCH (10:52)
--- NOTE | 2018-08-20 18:44 | PDOC PROGRESS REPORT ---
Subjective Progress Note for:: 08/20/18 Subjective:: Patient was seen by the bedside, she was downgraded to telemetry floor from ICU yesterday Reason For Visit: RESPIRATORY FAILURE Physical Exam Vital Signs: Temp Pulse Resp BP Pulse Ox 97.8 F 75 16 155/80 H 96 08/20/18 15:06 08/20/18 16:03 08/20/18 16:03 08/20/18 15:06 08/20/18 16:03 Intake & Output 08/19/18 08/20/18 08/21/18 06:59 06:59 06:59 Intake Total 447 166 3695 Output Total 3120 6 Balance -9480 -6822 2190 Weight 109.8 kg General appearance: PRESENT: no acute distress Eye exam: PRESENT: PERRLA Respiratory exam: PRESENT: rales Cardiovascular exam: PRESENT: +S1, +S2 GI/Abdominal exam: PRESENT: soft Neurological exam: PRESENT: alert Results Laboratory Results: 08/20/18 05:30 08/20/18 05:30 08/20/18 08/20/18 08/20/18 05:30 05:30 05:40 WBC 9.6 RBC 4.54 Hgb 12.4 Hct 38.6 MCV 85 MCH 27.2 MCHC 32.1 RDW 17.3 H Plt Count 239 Seg Neutrophils % Not Reportable Lymphocytes % Not Reportable Monocytes % Not Reportable Eosinophils % Not Reportable Basophils % Not Reportable Absolute Neutrophils Not Reportable Absolute Lymphocytes Not Reportable Absolute Monocytes Not Reportable Absolute Eosinophils Not Reportable Absolute Basophils Not Reportable Carbonic Acid 1.77 H HCO3/H2CO3 Ratio 16:1 ABG pH 7.31 L ABG pCO2 58.7 H ABG pO2 57.9 L ABG HCO3 29.0 H ABG O2 Saturation 87.1 L ABG Base Excess 1.4 FiO2 24% Sodium 145.5 H Potassium 4.4 Chloride 106 Carbon Dioxide 30 Anion Gap 10 BUN 45 H Creatinine 1.52 H Est GFR ( Amer) 41 L Est GFR (Non-Af Amer) 34 L Glucose 104 Calcium 9.8 Magnesium 2.9 H Total Bilirubin 0.7 AST 43 H ALT 44 Alkaline Phosphatase 79 Total Protein 7.7 Albumin 3.8 08/16/18 08/16/18 08/16/18 13:13 16:42 18:20 Creatine Kinase 40 CK-MB (CK-2) 1.13 Troponin I 0.083 0.079 NT-Pro-B Natriuret Pep 1700 H 08/16/18 08/16/18 08/16/18 18:20 23:30 23:30 Creatine Kinase 33 CK-MB (CK-2) 1.07 0.82 Troponin I 0.076 0.062 NT-Pro-B Natriuret Pep 08/17/18 08/17/18 05:15 05:15 Creatine Kinase 30 CK-MB (CK-2) 0.63 Troponin I 0.057 NT-Pro-B Natriuret Pep 984 H Impressions: Venous Doppler Study 08/17/18 00:00 IMPRESSION: NO EVIDENCE DVT OR SVT IN EITHER LEG. Chest X-Ray 08/20/18 06:00 IMPRESSION: Persistent left retrocardiac air bronchograms from consolidation Assessment & Plan - Diagnosis (1) Acute respiratory failure with hypoxia and hypercapnia Is this a current diagnosis for this admission?: Yes Plan: She continues to require oxygen via nasal cannula (2) Chronic obstructive pulmonary disease with acute exacerbation Is this a current diagnosis for this admission?: Yes (3) Pneumonia Qualifiers: Pneumonia type: due to unspecified organism Laterality: unspecified laterality Lung location: unspecified part of lung Qualified Code(s): J18.9 - Pneumonia, unspecified organism Is this a current diagnosis for this admission?: Yes Plan: Continue IV antibiotic
[2018-08-20] MEDS: NORMAL SALINE INJ/PF 0.9% 10 ML SDV IV PRN (21:40)
[2018-08-21] MEDS: CEFEPIME 1 GM/D5W RTU 1 GM/50 ML RTUPB IV SCH ×2 (06:19→17:18)
[2018-08-21] MEDS: LEVOTHYROXINE SODIUM 0.025 MG TABLET PO SCH (06:20)
[2018-08-21] MEDS: LEVOTHYROXINE SODIUM 0.1 MG TABLET PO SCH (06:20)
[2018-08-21] MEDS: IPRATROPIUM/ALBUTEROL 0.5-2.5 MG/3 ML AMPUL NEB SCH ×4 (08:39→19:56)
[2018-08-21] MEDS: PREDNISONE 20 MG TABLET PO SCH (09:55)
[2018-08-21] MEDS: FUROSEMIDE INJ/PF 20 MG/2 ML SDV IV SCH ×2 (09:55→22:55)
[2018-08-21] MEDS: FAMOTIDINE INJ/PF 20 MG/2 ML SDV IV SCH ×2 (09:55→22:57)
[2018-08-21] MEDS: LEVOFLOXACIN 500 MG/D5W RTU 500 MG/100 ML RTUPB IV SCH (09:56)
[2018-08-21] MEDS: ENOXAPARIN SODIUM INJ 40 MG/0.4 ML DISP.SYRIN SUBCUT SCH (09:56)
--- NOTE | 2018-08-21 20:43 | PDOC PROGRESS REPORT ---
Subjective Progress Note for:: 08/21/18 Subjective:: Patient was seen by the bedside, she complain of excessive diuresis last night Reason For Visit: RESPIRATORY FAILURE Physical Exam Vital Signs: Temp Pulse Resp BP Pulse Ox 98.0 F 68 12 137/71 H 94 08/21/18 15:27 08/21/18 19:00 08/21/18 16:13 08/21/18 15:27 08/21/18 16:13 Intake & Output 08/20/18 08/21/18 08/22/18 06:59 06:59 06:59 Intake Total 284 2710 150 Output Total 2025 Balance -1742 2710 150 Weight 108.2 kg General appearance: PRESENT: no acute distress Eye exam: PRESENT: PERRLA Respiratory exam: PRESENT: wheezes Cardiovascular exam: PRESENT: +S1, +S2 GI/Abdominal exam: PRESENT: soft Neurological exam: PRESENT: alert Results Laboratory Results: 08/20/18 05:30 08/20/18 05:30 08/16/18 16:57 Blood Blood Culture - Final NO GROWTH IN 5 DAYS 08/16/18 16:42 Blood Blood Culture - Final NO GROWTH IN 5 DAYS 08/16/18 08/16/18 08/16/18 13:13 16:42 18:20 Creatine Kinase 40 CK-MB (CK-2) 1.13 Troponin I 0.083 0.079 NT-Pro-B Natriuret Pep 1700 H 08/16/18 08/16/18 08/16/18 18:20 23:30 23:30 Creatine Kinase 33 CK-MB (CK-2) 1.07 0.82 Troponin I 0.076 0.062 NT-Pro-B Natriuret Pep 08/17/18 08/17/18 05:15 05:15 Creatine Kinase 30 CK-MB (CK-2) 0.63 Troponin I 0.057 NT-Pro-B Natriuret Pep 984 H Impressions: Venous Doppler Study 08/17/18 00:00 IMPRESSION: NO EVIDENCE DVT OR SVT IN EITHER LEG. Chest X-Ray 08/20/18 06:00 IMPRESSION: Persistent left retrocardiac air bronchograms from consolidation Assessment & Plan - Diagnosis (1) Acute respiratory failure with hypoxia and hypercapnia Is this a current diagnosis for this admission?: Yes Plan: She continues to require oxygen via nasal cannula (2) Chronic obstructive pulmonary disease with acute exacerbation Is this a current diagnosis for this admission?: Yes (3) Pneumonia Qualifiers: Pneumonia type: due to unspecified organism Laterality: unspecified laterality Lung location: unspecified part of lung Qualified Code(s): J18.9 - Pneumonia, unspecified organism Is this a current diagnosis for this admission?: Yes Plan: Continue IV antibiotic
--- NOTE | 2018-08-22 00:43 | RADIOLOGY REPORT (SQ) ---
EXAM DESCRIPTION: XR CHEST 2 VIEWS COMPLETED DATE/TME: 08/21/2018 00:00 CLINICAL HISTORY: 67 years, Female, pneumonia COMPARISON: 08/20/2018 chest NUMBER OF VIEWS: 2 TECHNIQUE: 2 view chest LIMITATIONS: None. FINDINGS: Cardiomegaly. Central venous catheter with the tip likely in the cavoatrial junction. No pneumothorax. Atheromatous change thoracic aorta. Lungs are clear IMPRESSION: Cardiomegaly. Central venous catheter tip likely in the cavoatrial junction. No pneumothorax copyright 2010 [facility]- All Rights Reserved
[2018-08-22 02:38] LABS: ABSOLUTE LYMPHOCYTES (AUTO) 0.8 10^3/uL (0.5-4.7); ABSOLUTE MONOCYTES (AUTO) 0.6 10^3/uL (0.1-1.4); ABSOLUTE NEUT (AUTO) 7.8 10^3/uL (1.7-8.2); BASOPHILS % (AUTO) 0.3 % (0-2); EOSINOPHILS % (AUTO) 0.3 % (0-6); HEMATOCRIT 39.4 % (36.0-47.0); HEMOGLOBIN 12.6 g/dL (12.0-15.5); LYMPHOCYTES % (AUTO) 8.7 % (13-45); MEAN CORPUSCULAR HEMOGLOBIN 27.2 pg (27.0-33.4); MEAN CORPUSCULAR HGB CONC 31.9 g/dL (32.0-36.0); MEAN CORPUSCULAR VOLUME 85 fl (80-97); MONOCYTES % (AUTO) 6.9 % (3-13); PLATELET COUNT 211 10^3/uL (150-450); RED BLOOD COUNT 4.62 10^6/uL (3.72-5.28); SEGMENTED NEUTROPHILS % (AUTO) 83.8 % (42-78); TOTAL CELLS COUNTED % (AUTO) 100 %; WHITE BLOOD COUNT 9.3 10^3/uL (4.0-10.5)
[2018-08-22 02:53] LABS: ALANINE AMINOTRANSFERASE 103 U/L (9-52); ALBUMIN 3.6 g/dL (3.5-5.0); ALKALINE PHOSPHATASE 73 U/L (38-126); ANION GAP 10 (5-19); ASPARTATE AMINO TRANSFERASE 79 U/L (14-36); BILIRUBIN,DIRECT 0.2 mg/dL (0.0-0.4); BILIRUBIN,TOTAL 0.5 mg/dL (0.2-1.3); BLOOD UREA NITROGEN 47 mg/dL (7-20); CALCIUM 9.7 mg/dL (8.4-10.2); CARBON DIOXIDE 30 mmol/L (22-30); CHLORIDE 101 mmol/L (98-107); GLUCOSE 148 mg/dL (75-110); POTASSIUM 4.1 mmol/L (3.6-5.0)
[2018-08-22] MEDS: CEFEPIME 1 GM/D5W RTU 1 GM/50 ML RTUPB IV SCH ×2 (06:07→17:03)
[2018-08-22] MEDS: LEVOTHYROXINE SODIUM 0.1 MG TABLET PO SCH (06:07)
[2018-08-22] MEDS: LEVOTHYROXINE SODIUM 0.025 MG TABLET PO SCH (06:07)
[2018-08-22] MEDS: IPRATROPIUM/ALBUTEROL 0.5-2.5 MG/3 ML AMPUL NEB SCH ×4 (08:28→20:44)
[2018-08-22] MEDS: ENOXAPARIN SODIUM INJ 40 MG/0.4 ML DISP.SYRIN SUBCUT SCH (09:10)
[2018-08-22] MEDS: PREDNISONE 20 MG TABLET PO SCH (09:10)
[2018-08-22] MEDS: FUROSEMIDE INJ/PF 20 MG/2 ML SDV IV SCH ×2 (09:11→21:39)
[2018-08-22] MEDS: LEVOFLOXACIN 500 MG/D5W RTU 500 MG/100 ML RTUPB IV SCH (09:11)
[2018-08-22] MEDS: FAMOTIDINE INJ/PF 20 MG/2 ML SDV IV SCH ×2 (09:17→21:39)
[2018-08-22] MEDS ORDERED: DILTIAZEM HCL/D5W 125 MG/125 ML RTUINJ IV PRN (09:55)
[2018-08-22 10:11] LABS: ABSOLUTE EOSINOPHILS # (AUTO) 0.1 10^3/uL (0.0-0.6); ABSOLUTE LYMPHOCYTES (AUTO) 1.2 10^3/uL (0.5-4.7); ABSOLUTE MONOCYTES (AUTO) 0.8 10^3/uL (0.1-1.4); ABSOLUTE NEUT (AUTO) 7.1 10^3/uL (1.7-8.2); BASOPHILS % (AUTO) 0.2 % (0-2); EOSINOPHILS % (AUTO) 0.8 % (0-6); HEMATOCRIT 43.4 % (36.0-47.0); HEMOGLOBIN 13.7 g/dL (12.0-15.5); LYMPHOCYTES % (AUTO) 12.8 % (13-45); MEAN CORPUSCULAR HEMOGLOBIN 26.7 pg (27.0-33.4); MEAN CORPUSCULAR HGB CONC 31.5 g/dL (32.0-36.0); MEAN CORPUSCULAR VOLUME 85 fl (80-97); MONOCYTES % (AUTO) 8.4 % (3-13); PLATELET COUNT 245 10^3/uL (150-450); RED BLOOD COUNT 5.12 10^6/uL (3.72-5.28); RED CELL DISTRIBUTION WIDTH 16.8 % (11.5-14.0); SEGMENTED NEUTROPHILS % (AUTO) 77.8 % (42-78); TOTAL CELLS COUNTED % (AUTO) 100 %; WHITE BLOOD COUNT 9.2 10^3/uL (4.0-10.5)
[2018-08-22 10:37] LABS: ALANINE AMINOTRANSFERASE 128 U/L (9-52); ALBUMIN 3.8 g/dL (3.5-5.0); ALKALINE PHOSPHATASE 84 U/L (38-126); ANION GAP 7 (5-19); ASPARTATE AMINO TRANSFERASE 115 U/L (14-36); BILIRUBIN,DIRECT 0.2 mg/dL (0.0-0.4); BILIRUBIN,TOTAL 0.5 mg/dL (0.2-1.3); BLOOD UREA NITROGEN 41 mg/dL (7-20); CALCIUM 9.7 mg/dL (8.4-10.2); CARBON DIOXIDE 33 mmol/L (22-30); CHLORIDE 102 mmol/L (98-107); GLUCOSE 107 mg/dL (75-110); POTASSIUM 4.4 mmol/L (3.6-5.0); SODIUM 142.2 mmol/L (137-145); TOTAL PROTEIN 7.5 g/dL (6.3-8.2)
--- NOTE | 2018-08-22 12:35 | EKG REPORT ---
SEVERITY:- ABNORMAL ECG - ATRIAL FIBRILLATION LEFT ANTERIOR FASCICULAR BLOCK LEFT VENTRICULAR HYPERTROPHY : Confirmed by: Alexus Lilly 22-Aug-2018 12:34:12
--- NOTE | 2018-08-22 13:34 | PDOC PROGRESS REPORT ---
Subjective Progress Note for:: 08/22/18 Subjective:: Patient developed atrial fibrillation with rapid ventricular response, she has no history of atrial fibrillation, this will be new onset A. fib Reason For Visit: ACUTE RESPIRATORY FAILURE Physical Exam Vital Signs: Temp Pulse Resp BP Pulse Ox 98.1 F 88 16 116/78 96 08/22/18 12:10 08/22/18 12:27 08/22/18 12:27 08/22/18 12:00 08/22/18 12:27 Intake & Output 08/21/18 08/22/18 08/23/18 06:59 06:59 06:59 Intake Total 2710 1068 154 Output Total 250 Balance 2710 1068 -96 Weight 108.2 kg 103.5 kg Results Laboratory Results: 08/22/18 09:55 08/22/18 09:55 08/22/18 08/22/18 08/22/18 02:15 02:15 09:55 WBC 9.3 9.2 RBC 4.62 5.12 Hgb 12.6 13.7 Hct 39.4 43.4 MCV 85 85 MCH 27.2 26.7 L MCHC 31.9 L 31.5 L RDW 17.0 H 16.8 H Plt Count 211 245 Seg Neutrophils % 83.8 H 77.8 Lymphocytes % 8.7 L 12.8 L Monocytes % 6.9 8.4 Eosinophils % 0.3 0.8 Basophils % 0.3 0.2 Absolute Neutrophils 7.8 7.1 Absolute Lymphocytes 0.8 1.2 Absolute Monocytes 0.6 0.8 Absolute Eosinophils 0.0 0.1 Absolute Basophils 0.0 0.0 Sodium 141.0 Potassium 4.1 Chloride 101 Carbon Dioxide 30 Anion Gap 10 BUN 47 H Creatinine 1.28 H Est GFR ( Amer) 50 L Est GFR (Non-Af Amer) 42 L Glucose 148 H Calcium 9.7 Total Bilirubin 0.5 AST 79 H ALT 103 H Alkaline Phosphatase 73 Total Protein 7.0 Albumin 3.6 08/22/18 09:55 WBC RBC Hgb Hct MCV MCH MCHC RDW Plt Count Seg Neutrophils % Lymphocytes % Monocytes % Eosinophils % Basophils % Absolute Neutrophils Absolute Lymphocytes Absolute Monocytes Absolute Eosinophils Absolute Basophils Sodium 142.2 Potassium 4.4 Chloride 102 Carbon Dioxide 33 H Anion Gap 7 BUN 41 H Creatinine 1.24 Est GFR ( Amer) 52 L Est GFR (Non-Af Amer) 43 L Glucose 107 Calcium 9.7 Total Bilirubin 0.5 AST 115 H ALT 128 H Alkaline Phosphatase 84 Total Protein 7.5 Albumin 3.8 08/16/18 16:57 Blood Blood Culture - Final NO GROWTH IN 5 DAYS 08/16/18 16:42 Blood Blood Culture - Final NO GROWTH IN 5 DAYS 08/16/18 08/16/18 08/16/18 13:13 16:42 18:20 Creatine Kinase 40 CK-MB (CK-2) 1.13 Troponin I 0.083 0.079 NT-Pro-B Natriuret Pep 1700 H 08/16/18 08/16/18 08/16/18 18:20 23:30 23:30 Creatine Kinase 33 CK-MB (CK-2) 1.07 0.82 Troponin I 0.076 0.062 NT-Pro-B Natriuret Pep 08/17/18 08/17/18 05:15 05:15 Creatine Kinase 30 CK-MB (CK-2) 0.63 Troponin I 0.057 NT-Pro-B Natriuret Pep 984 H Impressions: Venous Doppler Study 08/17/18 00:00 IMPRESSION: NO EVIDENCE DVT OR SVT IN EITHER LEG. Chest X-Ray 08/21/18 00:00 IMPRESSION: Cardiomegaly. Central venous catheter tip likely in the cavoatrial junction. No pneumothorax copyright 2011 [employer]- All Rights Reserved Assessment & Plan - Diagnosis (1) Acute respiratory failure with hypoxia and hypercapnia Is this a current diagnosis for this admission?: Yes Plan: Patient still requires oxygen via nasal cannula (2) Chronic obstructive pulmonary disease with acute exacerbation Is this a current diagnosis for this admission?: Yes (3) Pneumonia Qualifiers: Pneumonia type: due to unspecified organism Laterality: unspecified laterality Lung location: unspecified part of lung Qualified Code(s): J18.9 - Pneumonia, unspecified organism Is this a current diagnosis for this admission?: Yes Plan: Continue antibiotic intravenously (4) Atrial fibrillation with rapid ventricular response Is this a current diagnosis for this admission?: Yes Plan: Start Cardizem infusion, 2D echo ordered, she may need anticoagulation chronically, the KIARA DS 2 score is 1, start Eliquis
[2018-08-22] MEDS: APIXABAN 5 MG TABLET PO SCH (17:03)
[2018-08-22] MEDS ORDERED: DILTIAZEM HCL 240 MG CAPSULE.CR PO ONE (17:30)
--- NOTE | 2018-08-22 22:16 | EKG REPORT ---
SEVERITY:- ABNORMAL ECG - SINUS RHYTHM PROBABLE LEFT ATRIAL ABNORMALITY LEFT ANTERIOR FASCICULAR BLOCK LEFT VENTRICULAR HYPERTROPHY : Confirmed by: Alexus Lilly 22-Aug-2018 22:16:13
[2018-08-23] MEDS: CEFEPIME 1 GM/D5W RTU 1 GM/50 ML RTUPB IV SCH ×2 (05:40→17:47)
[2018-08-23] MEDS: LEVOTHYROXINE SODIUM 0.1 MG TABLET PO SCH (05:41)
[2018-08-23] MEDS: LEVOTHYROXINE SODIUM 0.025 MG TABLET PO SCH (05:41)
[2018-08-23] MEDS: IPRATROPIUM/ALBUTEROL 0.5-2.5 MG/3 ML AMPUL NEB SCH ×2 (08:51→12:12)
[2018-08-23] MEDS: FAMOTIDINE INJ/PF 20 MG/2 ML SDV IV SCH ×2 (09:19→21:28)
[2018-08-23] MEDS: FUROSEMIDE INJ/PF 20 MG/2 ML SDV IV SCH ×2 (09:22→21:28)
[2018-08-23] MEDS: APIXABAN 5 MG TABLET PO SCH ×2 (09:22→17:47)
[2018-08-23] MEDS: PREDNISONE 20 MG TABLET PO SCH (09:22)
[2018-08-23] MEDS: DILTIAZEM HCL 240 MG CAPSULE.CR PO SCH (09:22)
[2018-08-23] MEDS: LEVOFLOXACIN 500 MG/D5W RTU 500 MG/100 ML RTUPB IV SCH (09:23)
[2018-08-23] MEDS ORDERED: IPRATROPIUM/ALBUTEROL 0.5-2.5 MG/3 ML AMPUL NEB PRN (12:20)
[2018-08-23] MEDS: DILTIAZEM HCL/D5W 125 MG/125 ML RTUINJ IV PRN (12:48)
--- NOTE | 2018-08-23 15:15 | PDOC PROGRESS REPORT ---
Subjective Progress Note for:: 08/23/18 Subjective:: Patient seen by the bedside yesterday she converted to sinus rhythm, she is back again A. fib with rapid ventricular response, yesterday she was transitioned to p.o. Cardizem, she will be restarted on Cardizem infusion Reason For Visit: ACUTE RESPIRATORY FAILURE Physical Exam Vital Signs: Temp Pulse Resp BP Pulse Ox 98.0 F 78 17 129/77 H 93 08/23/18 11:07 08/23/18 14:30 08/23/18 11:07 08/23/18 14:30 08/23/18 11:07 Intake & Output 08/22/18 08/23/18 08/24/18 06:59 06:59 06:59 Intake Total 1068 609 100 Output Total 250 Balance 1068 359 100 Weight 103.5 kg 103 kg General appearance: PRESENT: no acute distress Eye exam: PRESENT: PERRLA Respiratory exam: PRESENT: clear to auscultation abdulkadir Cardiovascular exam: PRESENT: irregular rhythm, +S1, +S2 GI/Abdominal exam: PRESENT: soft Neurological exam: PRESENT: alert, CN II-XII grossly intact Results Laboratory Results: 08/22/18 09:55 08/22/18 09:55 08/16/18 08/16/18 08/16/18 13:13 16:42 18:20 Creatine Kinase 40 CK-MB (CK-2) 1.13 Troponin I 0.083 0.079 NT-Pro-B Natriuret Pep 1700 H 08/16/18 08/16/18 08/16/18 18:20 23:30 23:30 Creatine Kinase 33 CK-MB (CK-2) 1.07 0.82 Troponin I 0.076 0.062 NT-Pro-B Natriuret Pep 08/17/18 08/17/18 05:15 05:15 Creatine Kinase 30 CK-MB (CK-2) 0.63 Troponin I 0.057 NT-Pro-B Natriuret Pep 984 H Impressions: Venous Doppler Study 08/17/18 00:00 IMPRESSION: NO EVIDENCE DVT OR SVT IN EITHER LEG. Chest X-Ray 08/21/18 00:00 IMPRESSION: Cardiomegaly. Central venous catheter tip likely in the cavoatrial junction. No pneumothorax copyright 2011 [employer]- All Rights Reserved Assessment & Plan - Diagnosis (1) Acute respiratory failure with hypoxia and hypercapnia Is this a current diagnosis for this admission?: Yes (2) Chronic obstructive pulmonary disease with acute exacerbation Is this a current diagnosis for this admission?: Yes (3) Pneumonia Qualifiers: Pneumonia type: due to unspecified organism Laterality: unspecified laterality Lung location: unspecified part of lung Qualified Code(s): J18.9 - Pneumonia, unspecified organism Is this a current diagnosis for this admission?: Yes (4) Atrial fibrillation with rapid ventricular response Is this a current diagnosis for this admission?: Yes Plan: Restart Cardizem infusion
--- NOTE | 2018-08-24 00:17 | EKG REPORT ---
SEVERITY:- ABNORMAL ECG - ATRIAL FIBRILLATION, V-RATE 78-140 LEFT ANTERIOR FASCICULAR BLOCK LEFT VENTRICULAR HYPERTROPHY : Confirmed by: Alexus Lilly 24-Aug-2018 00:16:33
[2018-08-24] MEDS: LEVOTHYROXINE SODIUM 0.025 MG TABLET PO SCH (05:01)
[2018-08-24] MEDS: LEVOTHYROXINE SODIUM 0.1 MG TABLET PO SCH (05:01)
[2018-08-24] MEDS: CEFEPIME 1 GM/D5W RTU 1 GM/50 ML RTUPB IV SCH ×2 (05:04→18:03)
--- NOTE | 2018-08-24 07:01 | EKG REPORT ---
SEVERITY:- ABNORMAL ECG - SINUS RHYTHM PROBABLE LEFT ATRIAL ABNORMALITY LEFT AXIS DEVIATION LEFT VENTRICULAR HYPERTROPHY : Confirmed by: Alexus Lilly 24-Aug-2018 07:00:45
[2018-08-24] MEDS: DILTIAZEM HCL/D5W 125 MG/125 ML RTUINJ IV PRN (08:44)
[2018-08-24] MEDS: DILTIAZEM HCL 240 MG CAPSULE.CR PO SCH (09:36)
[2018-08-24] MEDS: APIXABAN 5 MG TABLET PO SCH ×2 (09:36→18:03)
[2018-08-24] MEDS: PREDNISONE 20 MG TABLET PO SCH (09:36)
[2018-08-24] MEDS: FUROSEMIDE INJ/PF 20 MG/2 ML SDV IV SCH ×2 (09:37→21:57)
[2018-08-24] MEDS: LEVOFLOXACIN 500 MG/D5W RTU 500 MG/100 ML RTUPB IV SCH (09:37)
[2018-08-24] MEDS: FAMOTIDINE INJ/PF 20 MG/2 ML SDV IV SCH ×2 (09:38→21:57)
--- NOTE | 2018-08-24 18:33 | PDOC PROGRESS REPORT ---
Subjective Progress Note for:: 08/24/18 Subjective:: Patient seen by the bedside, she is back again A. doris, presently on IV Cardizem infusion Reason For Visit: ACUTE RESPIRATORY FAILURE Physical Exam Vital Signs: Temp Pulse Resp BP Pulse Ox 98.2 F 72 16 128/76 H 92 08/24/18 11:28 08/24/18 17:00 08/24/18 11:28 08/24/18 17:00 08/24/18 11:28 Intake & Output 08/23/18 08/24/18 08/25/18 06:59 06:59 06:59 Intake Total 418 155 1202 Output Total 250 2 Balance 359 800 998 Weight 103 kg 103.4 kg General appearance: PRESENT: no acute distress Respiratory exam: PRESENT: wheezes Cardiovascular exam: PRESENT: +S1, +S2 GI/Abdominal exam: PRESENT: soft Neurological exam: PRESENT: alert Results Laboratory Results: 08/22/18 09:55 08/22/18 09:55 08/16/18 08/16/18 08/16/18 13:13 16:42 18:20 Creatine Kinase 40 CK-MB (CK-2) 1.13 Troponin I 0.083 0.079 NT-Pro-B Natriuret Pep 1700 H 08/16/18 08/16/18 08/16/18 18:20 23:30 23:30 Creatine Kinase 33 CK-MB (CK-2) 1.07 0.82 Troponin I 0.076 0.062 NT-Pro-B Natriuret Pep 08/17/18 08/17/18 05:15 05:15 Creatine Kinase 30 CK-MB (CK-2) 0.63 Troponin I 0.057 NT-Pro-B Natriuret Pep 984 H Impressions: Venous Doppler Study 08/17/18 00:00 IMPRESSION: NO EVIDENCE DVT OR SVT IN EITHER LEG. Chest X-Ray 08/21/18 00:00 IMPRESSION: Cardiomegaly. Central venous catheter tip likely in the cavoatrial junction. No pneumothorax copyright 2010 [employer]- All Rights Reserved Assessment & Plan - Diagnosis (1) Acute respiratory failure with hypoxia and hypercapnia Is this a current diagnosis for this admission?: Yes (2) Chronic obstructive pulmonary disease with acute exacerbation Is this a current diagnosis for this admission?: Yes (3) Pneumonia Qualifiers: Pneumonia type: due to unspecified organism Laterality: unspecified later ality Lung location: unspecified part of lung Qualified Code(s): J18.9 - Pneumonia, unspecified organism Is this a current diagnosis for this admission?: Yes (4) Atrial fibrillation with rapid ventricular response Is this a current diagnosis for this admission?: Yes (5) Pulmonary hypertension Is this a current diagnosis for this admission?: Yes - Plan Summary Plan Summary: Patient is presently on IV Cardizem, antibiotic, bronchodilators
[2018-08-25] MEDS: CEFEPIME 1 GM/D5W RTU 1 GM/50 ML RTUPB IV SCH ×2 (05:40→17:31)
[2018-08-25] MEDS: LEVOTHYROXINE SODIUM 0.025 MG TABLET PO SCH (05:40)
[2018-08-25] MEDS: LEVOTHYROXINE SODIUM 0.1 MG TABLET PO SCH (05:40)
[2018-08-25] MEDS: PREDNISONE 20 MG TABLET PO SCH (09:49)
[2018-08-25] MEDS: APIXABAN 5 MG TABLET PO SCH ×2 (09:49→17:37)
[2018-08-25] MEDS: FUROSEMIDE INJ/PF 20 MG/2 ML SDV IV SCH ×2 (09:50→21:47)
[2018-08-25] MEDS: DILTIAZEM HCL 240 MG CAPSULE.CR PO SCH (09:50)
[2018-08-25] MEDS: FAMOTIDINE INJ/PF 20 MG/2 ML SDV IV SCH ×2 (09:51→21:47)
[2018-08-25] MEDS: LEVOFLOXACIN 500 MG/D5W RTU 500 MG/100 ML RTUPB IV SCH (09:51)
[2018-08-25] MEDS ORDERED: IPRATROPIUM/ALBUTEROL 0.5-2.5 MG/3 ML AMPUL NEB PRN (10:30)
--- NOTE | 2018-08-25 20:58 | PDOC DISCHARGE SUMMARY ---
General - Admit/Disc Date/PCP Admission Date/Primary Care Provider: 08/16/18 17:00 GENOVEVA WILLIAM MD Discharge Date: 08/25/18 - Discharge Diagnosis (1) Acute respiratory failure with hypoxia and hypercapnia Is this a current diagnosis for this admission?: Yes (2) Chronic obstructive pulmonary disease with acute exacerbation Is this a current diagnosis for this admission?: Yes (3) Pneumonia Is this a current diagnosis for this admission?: Yes (4) Atrial fibrillation with rapid ventricular response Is this a current diagnosis for this admission?: Yes (5) Pulmonary hypertension Is this a current diagnosis for this admission?: Yes - Additional Information Resuscitation Status: Full Code Prescriptions: Albuterol Sulfate [Proair Hfa Inhalation Aerosol 8.5 gm Mdi] 1 puff IH Q4 PRN #1 mdi PRN Reason: RX: Apixaban [Eliquis 5 mg Tablet] 5 mg PO BID #60 tablet RX: Diltiazem HCl [Cardizem Cd 240 mg Capsule.cr] 240 mg PO DAILY #30 capsule.cr Fluticasone/Umeclidin/Vilanter [Trelegy 100-62.5-25 Mcg Ellipta 14 Dose/Dpi] 1 each IH DAILY #2 inhaler Home Medications: RX: Levothyroxine Sodium [Synthroid] 125 mcg PO Q6AM 08/17/18 Albuterol Sulfate [Proair Hfa Inhalation Aerosol 8.5 gm Mdi] 1 puff IH Q4 PRN #1 mdi 08/25/18 Fluticasone/Umeclidin/Vilanter [Trelegy 100-62.5-25 Mcg Ellipta 14 Dose/Dpi] 1 each IH DAILY #2 inhaler 08/25/18 RX: Acetaminophen [Tylenol 325 mg Tablet] 650 mg NG Q4HP PRN tablet 08/25/18 RX: Apixaban [Eliquis 5 mg Tablet] 5 mg PO BID #60 tablet 08/25/18 RX: Diltiazem HCl [Cardizem Cd 240 mg Capsule.cr] 240 mg PO DAILY #30 capsule.cr 08/25/18 History of Present Illness History of Present Illness: SAMIA PACE is a 67 year old female.She was admitted when she presented with acute respiratory failure with hypercapnia and hypoxemia Hospital Course Hospital Course: She was admitted for the management of acute hypercapnic and hypoxemic respiratory failure, she required mechanical ventilation she was managed in intensive care unit. The respiratory failure is from combination of pneumonia and acute COPD exacerbation. She was treated with intravenous antibiotic, Solu- Medrol, bronchodilators. Hospital course was complicated with paroxysmal atrial fibrillation with rapid ventricular response, she required intravenous Cardizem infusion for rate control, she also was started on anticoagulant, Eliquis for primary prevention of stroke.A 2D echo was done, it showed pulmonary hypertension Physical Exam Vital Signs: Temp Pulse Resp BP Pulse Ox 98.1 F 69 18 114/77 99 08/25/18 15:14 08/25/18 15:14 08/25/18 15:14 08/25/18 15:14 08/25/18 15:14 Intake & Output 08/24/18 08/25/18 08/26/18 06:59 06:59 06:59 Intake Total 800 2305 325 Output Total 2 Balance 800 2303 325 Weight 103.4 kg 106 kg General appearance: PRESENT: no acute distress Eye exam: PRESENT: PERRLA Respiratory exam: PRESENT: rhonchi Cardiovascular exam: PRESENT: +S1, +S2 GI/Abdominal exam: PRESENT: soft Neurological exam: PRESENT: alert Results Laboratory Results: 08/22/18 09:55 08/22/18 09:55 08/16/18 08/16/18 08/16/18 13:13 16:42 18:20 Creatine Kinase 40 CK-MB (CK-2) 1.13 Troponin I 0.083 0.079 NT-Pro-B Natriuret Pep 1700 H 08/16/18 08/16/18 08/16/18 18:20 23:30 23:30 Creatine Kinase 33 CK-MB (CK-2) 1.07 0.82 Troponin I 0.076 0.062 NT-Pro-B Natriuret Pep 08/17/18 08/17/18 05:15 05:15 Creatine Kinase 30 CK-MB (CK-2) 0.63 Troponin I 0.057 NT-Pro-B Natriuret Pep 984 H Impressions: Venous Doppler Study 08/17/18 00:00 IMPRESSION: NO EVIDENCE DVT OR SVT IN EITHER LEG. Chest X-Ray 08/21/18 00:00 IMPRESSION: Cardiomegaly. Central venous catheter tip likely in the cavoatrial junction. No pneumothorax copyright 2010 [facility] [employer]- All Rights Reserved Qualifiers - * PATIENT BEING DISCHARGED WITH ANY OF THE FOLLOWING DIAGNOSIS: No
--- NOTE | 2018-08-25 21:41 | PDOC CONSULTATION ---
Consultation-Blank Consultation: CARDIOLOGY CONSULTATION by Dr. Luisa Perea on 08/25/2018.
[2018-08-25] MEDS: NORMAL SALINE INJ/PF 0.9% 10 ML SDV IV PRN (21:49)
[2018-08-26] MEDS: LEVOTHYROXINE SODIUM 0.1 MG TABLET PO SCH (05:37)
[2018-08-26] MEDS: LEVOTHYROXINE SODIUM 0.025 MG TABLET PO SCH (05:37)
[2018-08-26] MEDS: CEFEPIME 1 GM/D5W RTU 1 GM/50 ML RTUPB IV SCH (05:37)
[2018-08-26 06:42] LABS: ALANINE AMINOTRANSFERASE 67 U/L (9-52); ALBUMIN 3.4 g/dL (3.5-5.0); ALKALINE PHOSPHATASE 69 U/L (38-126); ASPARTATE AMINO TRANSFERASE 36 U/L (14-36); BILIRUBIN,DIRECT 0.3 mg/dL (0.0-0.4); BILIRUBIN,TOTAL 0.5 mg/dL (0.2-1.3); BLOOD UREA NITROGEN 44 mg/dL (7-20); CALCIUM 10.1 mg/dL (8.4-10.2); CARBON DIOXIDE 38 mmol/L (22-30); CHLORIDE 100 mmol/L (98-107); GLUCOSE 75 mg/dL (75-110); POTASSIUM 4.6 mmol/L (3.6-5.0); SODIUM 141.9 mmol/L (137-145); TOTAL PROTEIN 6.4 g/dL (6.3-8.2)
[2018-08-26 07:17] LABS: ANION GAP 5 (5-19)
[2018-08-26] MEDS: FAMOTIDINE INJ/PF 20 MG/2 ML SDV IV SCH (10:01)
[2018-08-26] MEDS: LEVOFLOXACIN 500 MG/D5W RTU 500 MG/100 ML RTUPB IV SCH (10:01)
[2018-08-26] MEDS: FUROSEMIDE INJ/PF 20 MG/2 ML SDV IV SCH (10:02)
[2018-08-26 10:06] VITALS: BP 131/55
[2018-08-26] MEDS: DILTIAZEM HCL 240 MG CAPSULE.CR PO SCH (10:12)
[2018-08-26] MEDS: APIXABAN 5 MG TABLET PO SCH (10:12)
[2018-08-26] MEDS: PREDNISONE 20 MG TABLET PO SCH (10:13)
--- NOTE | 2018-08-31 12:14 | PDOC PROGRESS REPORT ---
Subjective Progress Note for:: 08/18/18 Subjective:: Intubated and sedated Reason For Visit: RESPIRATORY FAILURE Physical Exam Vital Signs: Temp Pulse Resp BP Pulse Ox 97.5 F 63 20 161/69 H 97 08/18/18 08:00 08/18/18 08:21 08/18/18 08:21 08/18/18 08:00 08/18/18 08:21 Intake & Output 08/17/18 08/18/18 08/19/18 06:59 06:59 06:59 Intake Total 395 1160 34 Output Total 1020 1930 75 Balance -625 -770 -41 Weight 111.3 kg 109.7 kg General appearance: PRESENT: no acute distress, hard of hearing, morbidly obese. ABSENT: cooperative Head exam: PRESENT: atraumatic, normocephalic Eye exam: PRESENT: conjunctiva pale. ABSENT: EOMI, nystagmus, periorbital swelling, scleral icterus Mouth exam: PRESENT: dry mucosa, neck supple, tongue midline, other - ET tube Neck exam: ABSENT: carotid bruit, full ROM, JVD, lymphadenopathy, meningismus, tenderness, thyromegaly, tracheal deviation, tracheostomy, other Respiratory exam: PRESENT: decreased breath sounds, prolonged expiratory phas, rales, rhonchi, unlabored. ABSENT: retraction, stridor Cardiovascular exam: PRESENT: RRR, +S1, +S2 Pulses: PRESENT: normal radial pulses GI/Abdominal exam: PRESENT: soft. ABSENT: tenderness Gentrourinary exam: PRESENT: indwelling catheter Extremities exam: ABSENT: calf tenderness, clubbing, joint swelling Musculoskeletal exam: ABSENT: deformity, dislocation Neurological exam: ABSENT: awake Skin exam: PRESENT: dry, warm Results Laboratory Results: 08/18/18 03:26 08/18/18 03:26 08/18/18 08/18/18 08/18/18 03:26 03:26 03:26 WBC 12.0 H RBC 4.05 Hgb 11.0 L Hct 34.2 L MCV 84 MCH 27.3 MCHC 32.3 RDW 17.1 H Plt Count 246 Seg Neutrophils % Not Reportable Lymphocytes % Not Reportable Monocytes % Not Reportable Eosinophils % Not Reportable Basophils % Not Reportable Absolute Neutrophils Not Reportable Absolute Lymphocytes Not Reportable Absolute Monocytes Not Reportable Absolute Eosinophils Not Reportable Absolute Basophils Not Reportable Carbonic Acid 1.02 L HCO3/H2CO3 Ratio 25:1 ABG pH 7.51 H ABG pCO2 33.8 L ABG pO2 86.8 ABG HCO3 26.3 H ABG O2 Saturation 97.4 ABG Base Excess 3.5 FiO2 50% Sodium 141.1 Potassium 3.8 Chloride 108 H Carbon Dioxide 25 Anion Gap 8 BUN 37 H Creatinine 1.61 H Est GFR ( Amer) 39 L Est GFR (Non-Af Amer) 32 L Glucose 144 H Calcium 9.3 08/16/18 08/16/18 08/16/18 13:13 16:42 18:20 Creatine Kinase 40 CK-MB (CK-2) 1.13 Troponin I 0.083 0.079 NT-Pro-B Natriuret Pep 1700 H 08/16/18 08/16/18 08/16/18 18:20 23:30 23:30 Creatine Kinase 33 CK-MB (CK-2) 1.07 0.82 Troponin I 0.076 0.062 NT-Pro-B Natriuret Pep 08/17/18 08/17/18 05:15 05:15 Creatine Kinase 30 CK-MB (CK-2) 0.63 Troponin I 0.057 NT-Pro-B Natriuret Pep 984 H Impressions: Venous Doppler Study 08/17/18 00:00 IMPRESSION: NO EVIDENCE DVT OR SVT IN EITHER LEG. Chest X-Ray 08/18/18 06:00 IMPRESSION: Little interval change copyright 2011 [employer]- All Rights Reserved Assessment & Plan - Diagnosis (1) Pulmonary hypertension due to chronic obstructive pulmonary disease Is this a current diagnosis for this admission?: Yes Plan: Chronic COPD (2) Acute on chronic respiratory failure with hypoxia and hypercapnia Is this a current diagnosis for this admission?: Yes Plan: improving (3) Altered mental status Is this a current diagnosis for this admission?: Yes Plan: Lumbar puncture - Time Total Critical Time (Minutes): 40
== END 2018-08-26 11:00 | disposition home or self-care (01) | DRG 208 ==
LOC: ER 12:33 → EH 17:00 → ICU 18:15 → 4N 08-20 01:24 → 3S 08-22 09:30
PROVIDERS: ADMIT Family Medicine; ATTEND Internal Medicine
PROC: 5A1945Z Respiratory Ventilation, 24-96 Consecutive Hours (ICD-10-PCS; principal; 2018-08-16)
PROC: 5A09357 Assistance with Respiratory Ventilation, Less than 24 Consecutive Hours, Continuous Positive Airway Pressure (ICD-10-PCS; 2018-08-16)
PROC: 02HV33Z Insertion of Infusion Device into Superior Vena Cava, Percutaneous Approach (ICD-10-PCS; 2018-08-16)
PROC: 0BH17EZ Insertion of Endotracheal Airway into Trachea, Via Natural or Artificial Opening (ICD-10-PCS; 2018-08-16)
PROC: 3E0F7GC Introduction of Other Therapeutic Substance into Respiratory Tract, Via Natural or Artificial Opening (ICD-10-PCS; 2018-08-16)
DX: J96.02 Acute respiratory failure with hypercapnia (principal); J18.9 Pneumonia, unspecified organism; E87.2 Acidosis; J45.902 Unspecified asthma with status asthmaticus; J44.1 Chronic obstructive pulmonary disease with (acute) exacerbation; Z68.41 Body mass index [BMI] 40.0-44.9, adult; I27.20 Pulmonary hypertension, unspecified; I11.0 Hypertensive heart disease with heart failure; I48.91 Unspecified atrial fibrillation; E66.01 Morbid (severe) obesity due to excess calories; I50.9 Heart failure, unspecified; J96.01 Acute respiratory failure with hypoxia; E03.9 Hypothyroidism, unspecified; M19.90 Unspecified osteoarthritis, unspecified site; I87.303 Chronic venous hypertension (idiopathic) without complications of bilateral lower extremity; Z87.891 Personal history of nicotine dependence; Z91.041 Radiographic dye allergy status; Z79.01 Long term (current) use of anticoagulants
CPT/HCPCS: 31500; 36415; 36600; 71045; 71046; 80048; 80053; 81001; 82550; 82553; 82803; 82962; 83735; 83880; 84484; 85025; 87040; 87070; 87205; 93005; 93010; 93306; 93970; 94002; 94003; 94640; 94660; 94799; 96374; 96375; 99291; C1751; J0330; J0692; J1642; J1650; J1940; J1956; J2250; J2704; J2930; J3490; J7512; J7620; S0028

== ENCOUNTER 2018-09-14 18:57 | Inpatient (IN) | payer MEDICARE ==
[2018-09-14] MEDS ORDERED: ALBUTEROL SULFATE HFA (90 MCG/PUFF) 200 PUFF/8.5 GM MDI IH PRN (19:58)
--- NOTE | 2018-09-14 20:21 | RADIOLOGY REPORT (SQ) ---
EXAM DESCRIPTION: XR CHEST 1 VIEW COMPLETED DATE/TME: 09/14/2018 00:00 CLINICAL HISTORY: 67 years, Female, Admission, COPD, Hypoxemia Compared to 08/20/2018. FINDINGS: The heart is moderately enlarged. No pneumothorax. Mild central pulmonary edema. No pleural effusions. IMPRESSION: Stable findings with mild central pulmonary edema suspected.
--- NOTE | 2018-09-14 20:27 | PDOC H&P ---
History of Present Illness Admission Date/PCP: 09/14/18 18:57 GENOVEVA WILLIAM MD History of Present Illness: SAMIA PACE is a 67 year old female,Patient came to the office for evaluation of shortness of breath and fatigue, the oxygen saturation in the office was 45%. She has a history of very severe chronic obstructive pulmonary disease, atrial fibrillation on anticoagulation with Eliquis, severe pulmonary hypertension. She was just recently discharged from the hospital, patient needed oxygen therapy but I was unable to arrange for oxygen in my office she came late to the office today which was after 5 PM. She was treated in the office with oxygen, there was improvement in the oxygen saturation on 2 L of oxygen. She was admitted for observation basically to arrange for oxygen therapy and for discharge planning to make provision for home oxygen Past Medical History Cardiac Medical History: Reports: Hypertension Pulmonary Medical History: Reports: Asthma, Bronchitis, Chronic Obstructive Pulmonary Disease (COPD), Respiratory Failure, Other - Pulmonary hypertension Endocrine Medical History: Reports: Hypothyroidism Musculoskeltal Medical History: Reports: Arthritis Past Surgical History Past Surgical History: Reports: Section, Cholecystectomy Social History Smoking Status: Former Smoker Frequency of Alcohol Use: None Hx Recreational Drug Use: No Hx Prescription Drug Abuse: No Family History Family History: Reviewed & Not Pertinent Parental Family History Reviewed: Yes Children Family History Reviewed: Yes Sibling(s) Family History Reviewed.: Yes Medication/Allergy Home Medications: Albuterol Sulfate [Proair HFA Inhalation Aerosol 8.5 gm MDI] 1 puff IH Q4HP PRN 09/14/18 Amlodipine Besylate [Norvasc 10 mg Tablet] 10 mg PO DAILY 09/14/18 Apixaban [Eliquis 5 mg Tablet] 5 mg PO BID 09/14/18 Diltiazem HCl [Cartia Xt] 240 mg PO DAILY 09/14/18 Fluticasone/Umeclidin/Vilanter [Trelegy 100-62.5-25 Mcg Ellipta 14 Dose/Dpi] 1 each IH DAILY 09/14/18 Levothyroxine Sodium [Synthroid] 125 mcg PO Q6AM 09/14/18 Losartan Potassium [Cozaar 100 mg Tablet] 100 mg PO DAILY 09/14/18 Allergies/Adverse Reactions: Iodine and Iodide Containing Produc Allergy (Verified 05/27/17 22:53) Review of Systems Constitutional: ABSENT: chills, fever(s), headache(s), weight gain, weight loss Eyes: ABSENT: visual disturbances Ears: ABSENT: hearing changes Cardiovascular: ABSENT: chest pain, dyspnea on exertion, edema, orthropnea, palpitations Respiratory: PRESENT: dyspnea Gastrointestinal: ABSENT: abdominal pain, constipation, diarrhea, hematemesis, hematochezia, nausea, vomiting Genitourinary: ABSENT: dysuria, hematuria Musculoskeletal: ABSENT: joint swelling Integumentary: ABSENT: rash, wounds Neurological: ABSENT: abnormal gait, abnormal speech, confusion, dizziness, focal weakness, syncope Psychiatric: ABSENT: anxiety, depression, homidical ideation, suicidal ideation Endocrine: ABSENT: cold intolerance, heat intolerance, menstrual abnormalities, polydipsia, polyuria Hematologic/Lymphatic: ABSENT: easy bleeding, easy bruising, lymphadenopathy Physical Exam General appearance: PRESENT: mild distress Head exam: PRESENT: atraumatic Eye exam: PRESENT: PERRLA Mouth exam: PRESENT: moist, tongue midline Neck exam: PRESENT: full ROM Respiratory exam: PRESENT: clear to auscultation abdulkadir Cardiovascular exam: PRESENT: RRR, +S1, +S2 Pulses: PRESENT: normal dorsalis pedis pul, +2 pedal pulses bilateral Vascular exam: PRESENT: normal capillary refill GI/Abdominal exam: PRESENT: normal bowel sounds, soft Rectal exam: PRESENT: deferred Neurological exam: PRESENT: alert Psychiatric exam: PRESENT: appropriate affect, normal mood Skin exam: PRESENT: dry, intact, warm Results Impressions: Chest X-Ray 09/14/18 00:00 IMPRESSION: Stable findings with mild central pulmonary edema suspected. Assessment & Plan - Diagnosis (1) Chronic respiratory failure with hypoxia and hypercapnia Is this a current diagnosis for this admission?: Yes Plan: She has chronic respiratory failure with hypoxia and hypercapnia she will require oxygen she was brought in for observation, the arterial blood gas that was done suggest acute respiratory acidosis, she required noninvasive positive pressure ventilation. The cause of the hypercapnia is most likely from high volume oxygen therapy that was administered on the floor, she has COPD, she required hypoxic respiratory drive to maintain adequate ventilation (2) Chronic obstructive pulmonary disease Qualifiers: COPD type: unspecified COPD Qualified Code(s): J44.9 - Chronic obstructive pulmonary disease, unspecified Is this a current diagnosis for this admission?: Yes (3) Pulmonary hypertension Is this a current diagnosis for this admission?: Yes
[2018-09-14 21:55] LABS: HEMATOCRIT 36.3 % (36.0-47.0); HEMOGLOBIN 11.5 g/dL (12.0-15.5); MEAN CORPUSCULAR HEMOGLOBIN 26.9 pg (27.0-33.4); MEAN CORPUSCULAR HGB CONC 31.6 g/dL (32.0-36.0); MEAN CORPUSCULAR VOLUME 85 fl (80-97); PLATELET COUNT 254 10^3/uL (150-450); RED BLOOD COUNT 4.27 10^6/uL (3.72-5.28); RED CELL DISTRIBUTION WIDTH 17.2 % (11.5-14.0); WHITE BLOOD COUNT 13.2 10^3/uL (4.0-10.5)
[2018-09-14] MEDS: ACETAMINOPHEN 325 MG TABLET PO PRN (21:55)
[2018-09-14 22:08] LABS: ALANINE AMINOTRANSFERASE 30 U/L (9-52); ALBUMIN 3.7 g/dL (3.5-5.0); ALKALINE PHOSPHATASE 93 U/L (38-126); ANION GAP 9 (5-19); ASPARTATE AMINO TRANSFERASE 26 U/L (14-36); BILIRUBIN,DIRECT 0.4 mg/dL (0.0-0.4); BILIRUBIN,TOTAL 1.3 mg/dL (0.2-1.3); BLOOD UREA NITROGEN 19 mg/dL (7-20); CALCIUM 9.5 mg/dL (8.4-10.2); CARBON DIOXIDE 27 mmol/L (22-30); CHLORIDE 103 mmol/L (98-107); GLUCOSE 116 mg/dL (75-110); POTASSIUM 4.7 mmol/L (3.6-5.0); SODIUM 139.3 mmol/L (137-145); TOTAL PROTEIN 7.8 g/dL (6.3-8.2)
[2018-09-14 23:53] LABS: ARTERIAL BLOOD BASE EXCESS -1.3 mmol/L; ARTERIAL BLOOD FIO2 3L; ARTERIAL BLOOD H2CO3 2.42 mmol/L (1.05-1.35); ARTERIAL BLOOD HCO3 28.9 mmol/L (20-24); ARTERIAL BLOOD O2 SATURATION 72.1 % (94-98); ARTERIAL BLOOD PO2 48.5 mmHg (80-100); ARTERIAL BLOOD TOTAL CO2 31.4 mmol/L (21-25)
[2018-09-14 23:56] LABS: ARTERIAL BLOOD PCO2 80.3 mmHg (35-45); ARTERIAL BLOOD PH 7.17 (7.35-7.45)
[2018-09-15] MEDS: LEVOTHYROXINE SODIUM 0.1 MG TABLET PO SCH (05:42)
[2018-09-15] MEDS: LEVOTHYROXINE SODIUM 0.025 MG TABLET PO SCH (05:42)
[2018-09-15] MEDS ORDERED: (PENDING PHARMACY ID) (Levothyroxine Sodium [Synthroid] 125 MCG) PO SCH (06:00)
[2018-09-15] MEDS ORDERED: FUROSEMIDE INJ/PF 40 MG/4 ML SDV IV ONE ×2 (08:38→11:30)
[2018-09-15] MEDS: LOSARTAN POTASSIUM 50 MG TABLET PO SCH (10:51)
[2018-09-15] MEDS: APIXABAN 5 MG TABLET PO SCH ×2 (10:51→17:29)
[2018-09-15] MEDS: AMLODIPINE BESYLATE 10 MG TABLET PO SCH (10:51)
[2018-09-15] MEDS: DILTIAZEM HCL 240 MG CAPSULE.CR PO SCH (10:51)
[2018-09-15] MEDS: FLUTICASONE/UMECLIDIN/VILANTER 100-62.5-25 MCG/DOSE IH SCH (17:29)
--- NOTE | 2018-09-15 21:17 | PDOC DISCHARGE SUMMARY ---
General - Admit/Disc Date/PCP Admission Date/Primary Care Provider: 09/14/18 18:57 GENOVEVA WILLIAM MD Discharge Date: 09/15/18 - Discharge Diagnosis (1) Chronic respiratory failure with hypoxia and hypercapnia Is this a current diagnosis for this admission?: Yes (2) Chronic obstructive pulmonary disease Is this a current diagnosis for this admission?: Yes (3) Pulmonary hypertension Is this a current diagnosis for this admission?: Yes - Additional Information Home Medications: Albuterol Sulfate [Proair HFA Inhalation Aerosol 8.5 gm MDI] 1 puff IH Q4HP PRN 09/14/18 Amlodipine Besylate [Norvasc 10 mg Tablet] 10 mg PO DAILY 09/14/18 Apixaban [Eliquis 5 mg Tablet] 5 mg PO BID 09/14/18 Diltiazem HCl [Cartia Xt] 240 mg PO DAILY 09/14/18 Fluticasone/Umeclidin/Vilanter [Trelegy 100-62.5-25 Mcg Ellipta 14 Dose/Dpi] 1 each IH DAILY 09/14/18 Levothyroxine Sodium [Synthroid] 125 mcg PO Q6AM 09/14/18 Losartan Potassium [Cozaar 100 mg Tablet] 100 mg PO DAILY 09/14/18 History of Present Illness History of Present Illness: SAMIA PACE is a 67 year old female,Patient came to the office for evaluation of shortness of breath and fatigue, the oxygen saturation in the office was 45%. She has a history of very severe chronic obstructive pulmonary disease, atrial fibrillation on anticoagulation with Eliquis, severe pulmonary hypertension. She was just recently discharged from the hospital, patient needed oxygen therapy but I was unable to arrange for oxygen in my office she came late to the office today which was after 5 PM. She was treated in the office with oxygen, there was improvement in the oxygen saturation on 2 L of oxygen. She was admitted for observation basically to arrange for oxygen therapy and for discharge planning to make provision for home oxygen Hospital Course Hospital Course: Patient was admitted essentially for observation and to arrange for oxygen ther apy at home but she developed acute hypercapnic respiratory acidosis the etiology of the acute respiratory acidosis is most likely from the administration of high volume oxygen therapy on the floor. She required hypoxic respiratory drive to maintain adequate ventilation.Patient required positive pr essure ventilation temporarily this was discontinued on transition to oxygen via nasal cannula at 2 L/min Physical Exam Vital Signs: Temp Pulse Resp BP Pulse Ox 98.5 F 72 20 165/66 H 93 09/15/18 16:21 09/15/18 16:21 09/15/18 16:21 09/15/18 16:21 09/15/18 16:21 Intake & Output 09/14/18 09/15/18 09/16/18 06:59 06:59 06:59 Intake Total 642 Balance 642 Weight 113.3 kg General appearance: PRESENT: no acute distress, well-developed, well-nourished Head exam: PRESENT: atraumatic, normocephalic Eye exam: PRESENT: conjunctiva pink, EOMI, PERRLA Ear exam: PRESENT: normal external ear exam Neck exam: PRESENT: full ROM Respiratory exam: PRESENT: clear to auscultation abdulkadir Cardiovascular exam: PRESENT: RRR, +S1, +S2 Vascular exam: PRESENT: normal capillary refill GI/Abdominal exam: PRESENT: normal bowel sounds, soft Rectal exam: PRESENT: deferred Neurological exam: PRESENT: alert, awake, oriented to person, oriented to place, oriented to time, oriented to situation, CN II-XII grossly intact Psychiatric exam: PRESENT: appropriate affect, normal mood Skin exam: PRESENT: dry, intact, warm Results Laboratory Results: 09/14/18 21:10 09/14/18 21:10 09/14/18 09/14/18 09/14/18 21:10 21:10 22:00 WBC 13.2 H RBC 4.27 Hgb 11.5 L Hct 36.3 MCV 85 MCH 26.9 L MCHC 31.6 L RDW 17.2 H Plt Count 254 Carbonic Acid 2.42 H HCO3/H2CO3 Ratio 11:1 ABG pH 7.17 L* ABG pCO2 80.3 H* ABG pO2 48.5 L ABG HCO3 28.9 H ABG O2 Saturation 72.1 L ABG Base Excess -1.3 FiO2 3L Sodium 139.3 Potassium 4.7 Chloride 103 Carbon Dioxide 27 Anion Gap 9 BUN 19 Creatinine 1.15 Est GFR ( Amer) 57 L Est GFR (Non-Af Amer) 47 L Glucose 116 H Calcium 9.5 Total Bilirubin 1.3 AST 26 ALT 30 Alkaline Phosphatase 93 Total Protein 7.8 Albumin 3.7 Impressions: Chest X-Ray 09/14/18 00:00 IMPRESSION: Stable findings with mild central pulmonary edema suspected. Qualifiers - * PATIENT BEING DISCHARGED WITH ANY OF THE FOLLOWING DIAGNOSIS: No
[2018-09-15] MEDS: ACETAMINOPHEN 325 MG TABLET PO PRN (23:51)
[2018-09-16] MEDS: LEVOTHYROXINE SODIUM 0.025 MG TABLET PO SCH (05:45)
[2018-09-16] MEDS: LEVOTHYROXINE SODIUM 0.1 MG TABLET PO SCH (05:45)
[2018-09-16] MEDS: FLUTICASONE/UMECLIDIN/VILANTER 100-62.5-25 MCG/DOSE IH SCH (09:38)
[2018-09-16] MEDS: AMLODIPINE BESYLATE 10 MG TABLET PO SCH (09:39)
[2018-09-16] MEDS: APIXABAN 5 MG TABLET PO SCH ×2 (09:39→17:56)
[2018-09-16] MEDS: LOSARTAN POTASSIUM 50 MG TABLET PO SCH (09:39)
[2018-09-16] MEDS: DILTIAZEM HCL 240 MG CAPSULE.CR PO SCH (09:39)
[2018-09-16 16:58] LABS: ARTERIAL BLOOD BASE EXCESS 0 mmol/L; ARTERIAL BLOOD HCO3 29.2 mmol/L (20-24); ARTERIAL BLOOD O2 SATURATION 88.6 % (94-98); ARTERIAL BLOOD PH 7.22 (7.35-7.45); ARTERIAL BLOOD TOTAL CO2 31.5 mmol/L (21-25)
[2018-09-16 17:01] LABS: ARTERIAL BLOOD FIO2 5L
[2018-09-16 17:22] LABS: ABSOLUTE BASOPHILS # (AUTO) 0.1 10^3/uL (0.0-0.2); ABSOLUTE EOSINOPHILS # (AUTO) 0.1 10^3/uL (0.0-0.6); ABSOLUTE LYMPHOCYTES (AUTO) 1.2 10^3/uL (0.5-4.7); ABSOLUTE MONOCYTES (AUTO) 0.5 10^3/uL (0.1-1.4); ABSOLUTE NEUT (AUTO) 8.9 10^3/uL (1.7-8.2); BASOPHILS % (AUTO) 0.7 % (0-2); EOSINOPHILS % (AUTO) 0.7 % (0-6); HEMATOCRIT 35.8 % (36.0-47.0); HEMOGLOBIN 11.2 g/dL (12.0-15.5); LYMPHOCYTES % (AUTO) 11.4 % (13-45); MEAN CORPUSCULAR HEMOGLOBIN 26.7 pg (27.0-33.4); MEAN CORPUSCULAR HGB CONC 31.3 g/dL (32.0-36.0); MEAN CORPUSCULAR VOLUME 85 fl (80-97); MONOCYTES % (AUTO) 4.9 % (3-13); PLATELET COUNT 247 10^3/uL (150-450); RED BLOOD COUNT 4.19 10^6/uL (3.72-5.28); RED CELL DISTRIBUTION WIDTH 17.3 % (11.5-14.0); SEGMENTED NEUTROPHILS % (AUTO) 82.3 % (42-78); TOTAL CELLS COUNTED % (AUTO) 100 %; WHITE BLOOD COUNT 10.8 10^3/uL (4.0-10.5)
[2018-09-16 17:32] LABS: ARTERIAL BLOOD PCO2 73.2 mmHg (35-45)
[2018-09-16] MEDS ORDERED: FUROSEMIDE INJ/PF 20 MG/2 ML SDV IV ONE (17:44)
[2018-09-16] MEDS ORDERED: FUROSEMIDE INJ/PF 100 MG/10 ML SDV ONE (17:51)
--- NOTE | 2018-09-16 18:11 | RADIOLOGY REPORT (SQ) ---
EXAM DESCRIPTION: CT CHEST WITHOUT COMPLETED DATE/TIME: 09/16/2018 5:19 pm REASON FOR STUDY: respiratory failure R09.02 HYPOXEMIA COMPARISON: CT angio chest 03/09/2015 CT chest 03/09/2015, 11/03/2014, 04/17/2008 TECHNIQUE: CT scan performed of the chest without intravenous contrast. Images reviewed with lung, soft tissue and bone windows. Reconstructed coronal and sagittal MPR images reviewed. All images st ored on PACS. All CT scanners at this facility use dose modulation, iterative reconstruction, and/or weight based d osing when appropriate to reduce radiation dose to as low as reasonably achievable (ALARA). [facility]: Dose Right [facility]: CareDose [facility]: Dose Right [facility]: Teradose 4D [facility]: Smart Technologies RADIATION DOSE: CT Rad equipment meets quality standard of care and radiation dose reduction techniq ues were employed. CTDIvol: 29.4 mGy. DLP: 1059 mGy-cm. mGy. LIMITATIONS: No technical limitations. FINDINGS: LUNGS AND PLEURA: Dense consolidation is present the left lower lobe worrisome for pneumon ia. Trace left pleural effusion layers dependently in the left chest. Lungs elsewhere demonstrate no other focal findings. No right or left pneumothorax HILAR AND MEDIASTINAL STRUCTURES: No identified masses or abnormal nodes. No obvious aneurysm. HEART AND VASCULAR STRUCTURES: No aneurysm. No pericardial effusion. UPPER ABDOMEN: Moderate cardiomegaly. Calcified aortic valve. No pericardial effusion THYROID AND OTHER SOFT TISSUES: No masses. No adenopathy. BONES: No significant finding. HARDWARE: Clips right upper quadrant post cholecystectomy OTHER: No other significant findings. IMPRESSION: Left lower lobe pneumonia. Trace left pleural effusion TECHNICAL DOCUMENTATION: JOB ID: [id number] Quality ID # [id number]: Final reports with documentation of one or more dose reduction techniques (e.g., Au tomated exposure control, adjustment of the mA and/or kV according to patient size, use of iterative reconstruction technique) 2010 [employer]- All Rights Reserved Reading location - IP/workstation name: [email or web address]
[2018-09-16] MEDS ORDERED: LEVOFLOXACIN 750 MG/D5W RTU 750 MG/150 ML RTUPB IV SCH (18:30)
[2018-09-16] MEDS ORDERED: CEFEPIME 2 GM/D5W RTU 2 GM/50 ML RTUPB IV SCH (18:30)
--- NOTE | 2018-09-16 18:52 | PDOC H&P ---
History of Present Illness Admission Date/PCP: 09/16/18 12:30 GENOVEVA WILLIAM MD History of Present Illness: Patient was admitted initially for observation with the intent to arrange for oxygen therapy. Patient had difficulty maintaining adequate oxygen saturation, yesterday ABG was drawn it demonstrated acute hypercapnic respiratory failure, initially it was felt that the elevated CO2 was from administration of high volume oxygen therapy, she has COPD with severe pulmonary hypertension, hypoxic respiratory drive is needed to maintain adequate ventilation in this patient. Patient continued to require noninvasive positive pressure ventilation, because of this CT chest was ordered, it demonstrated right lower lobe consolidation consistent with pneumonia. She was initially brought in for observation the patient status was changed to inpatient she be transferred to ICU because she remained acidotic, she may require mechanical ventilation Past Medical History Cardiac Medical History: Reports: Hypertension Pulmonary Medical History: Reports: Asthma, Bronchitis, Chronic Obstructive Pulmonary Disease (COPD), Respiratory Failure, Other - Pulmonary hypertension Endocrine Medical History: Reports: Hypothyroidism Musculoskeltal Medical History: Reports: Arthritis Past Surgical History Past Surgical History: Reports: Section, Cholecystectomy Social History Smoking Status: Former Smoker Frequency of Alcohol Use: None Hx Recreational Drug Use: No Hx Prescription Drug Abuse: No Family History Family History: Reviewed & Not Pertinent Parental Family History Reviewed: Yes Children Family History Reviewed: Yes Sibling(s) Family History Reviewed.: Yes Medication/Allergy Home Medications: Albuterol Sulfate [Proair HFA Inhalation Aerosol 8.5 gm MDI] 1 puff IH Q4HP PRN 09/14/18 Amlodipine Besylate [Norvasc 10 mg Tablet] 10 mg PO DAILY 09/14/18 Apixaban [Eliquis 5 mg Tablet] 5 mg PO BID 09/14/18 Diltiazem HCl [Cartia Xt] 240 mg PO DAILY 09/14/18 Fluticasone/Umeclidin/Vilanter [Trelegy 100-62.5-25 Mcg Ellipta 14 Dose/Dpi] 1 each IH DAILY 09/14/18 Levothyroxine Sodium [Synthroid] 125 mcg PO Q6AM 09/14/18 Losartan Potassium [Cozaar 100 mg Tablet] 100 mg PO DAILY 09/14/18 Allergies/Adverse Reactions: Iodine and Iodide Containing Produc Allergy (Verified 05/27/17 22:53) Review of Systems Constitutional: ABSENT: chills, fever(s), headache(s), weight gain, weight loss Eyes: ABSENT: visual disturbances Ears: ABSENT: hearing changes Cardiovascular: ABSENT: chest pain, dyspnea on exertion, edema, orthropnea, palpitations Respiratory: PRESENT: cough, dyspnea Gastrointestinal: ABSENT: abdominal pain, constipation, diarrhea, hematemesis, hematochezia, nausea, vomiting Genitourinary: ABSENT: dysuria, hematuria Musculoskeletal: ABSENT: joint swelling Integumentary: ABSENT: rash, wounds Neurological: ABSENT: abnormal gait, abnormal speech, confusion, dizziness, focal weakness, syncope Psychiatric: ABSENT: anxiety, depression, homidical ideation, suicidal ideation Endocrine: ABSENT: cold intolerance, heat intolerance, menstrual abnormalities, polydipsia, polyuria Hematologic/Lymphatic: ABSENT: easy bleeding, easy bruising, lymphadenopathy Physical Exam Vital Signs: Temp Pulse Resp BP Pulse Ox 98.2 F 71 26 H 155/60 H 91 L 09/16/18 15:03 09/16/18 15:03 09/16/18 15:03 09/16/18 15:03 09/16/18 16:00 Pulse Oximeter Continuous Start: 09/16/18 12:30 Freq: RTQ4 Status: Active Protocol: Document 09/16/18 16:00 [facility] (Rec: 09/16/18 17:57 [facility] [email or web address]) Pulse Oximetry Assessment Oxygen Saturation (92-100) 91 Oxygen Flow Rate (L/min) 5 Oxygen Delivery Method Nasal Cannula Equipment Usage Equipment in Use Continuous SpO2 Machine # -- Intake & Output 09/15/18 09/16/18 09/17/18 06:59 06:59 06:59 Intake Total 1142 480 Balance 1142 480 Weight 113.3 kg 113.8 kg General appearance: PRESENT: severe distress Head exam: PRESENT: atraumatic, normocephalic Eye exam: PRESENT: PERRLA Ear exam: PRESENT: normal external ear exam Mouth exam: PRESENT: moist, tongue midline Neck exam: PRESENT: full ROM Respiratory exam: PRESENT: rhonchi Cardiovascular exam: PRESENT: RRR, +S1, +S2 Pulses: PRESENT: normal dorsalis pedis pul, +2 pedal pulses bilateral Vascular exam: PRESENT: normal capillary refill GI/Abdominal exam: PRESENT: normal bowel sounds, soft Rectal exam: PRESENT: deferred Neurological exam: PRESENT: alert, CN II-XII grossly intact Psychiatric exam: PRESENT: appropriate affect, normal mood Skin exam: PRESENT: dry, intact, warm. ABSENT: cyanosis, rash Results Laboratory Results: 09/16/18 16:20 09/16/18 09/16/18 09/16/18 16:20 16:20 16:45 WBC 10.8 H RBC 4.19 Hgb 11.2 L Hct 35.8 L MCV 85 MCH 26.7 L MCHC 31.3 L RDW 17.3 H Plt Count 247 Seg Neutrophils % 82.3 H Lymphocytes % 11.4 L Monocytes % 4.9 Eosinophils % 0.7 Basophils % 0.7 Absolute Neutrophils 8.9 H Absolute Lymphocytes 1.2 Absolute Monocytes 0.5 Absolute Eosinophils 0.1 Absolute Basophils 0.1 Carbonic Acid 2.20 H HCO3/H2CO3 Ratio 13:1 ABG pH 7.22 L ABG pCO2 73.2 H* ABG pO2 67.0 L ABG HCO3 29.2 H ABG O2 Saturation 88.6 L ABG Base Excess 0 FiO2 5L Sodium Cancelled Potassium Cancelled Chloride Cancelled Carbon Dioxide Cancelled Anion Gap Cancelled BUN Cancelled Creatinine Cancelled Est GFR ( Amer) Cancelled Est GFR (Non-Af Amer) Cancelled Glucose Cancelled Calcium Cancelled Total Bilirubin Cancelled AST Cancelled ALT Cancelled Alkaline Phosphatase Cancelled Total Protein Cancelled Albumin Cancelled Impressions: Chest X-Ray 09/14/18 00:00 IMPRESSION: Stable findings with mild central pulmonary edema suspected. Chest CT 09/16/18 00:00 IMPRESSION: Left lower lobe pneumonia. Trace left pleural effusion Assessment & Plan - Diagnosis (1) Acute respiratory failure with hypoxia and hypercapnia Is this a current diagnosis for this admission?: Yes Plan: Patient to be transferred to to ICU, she may require medical ventilation (2) Left lower lobe pneumonia Qualifiers: Pneumonia type: due to unspecified organism Qualified Code(s): J18.1 - Lobar pneumonia, unspecified organism Is this a current diagnosis for this admission?: Yes Plan: Start IV antibiotic, cefepime and Levaquin (3) Chronic respiratory failure with hypoxia and hypercapnia Is this a current diagnosis for this admission?: Yes (4) Chronic obstructive pulmonary disease Qualifiers: COPD type: unspecified COPD Qualified Code(s): J44.9 - Chronic obstructive pulmonary disease, unspecified Is this a current diagnosis for this admission?: Yes (5) Pulmonary hypertension Is this a current diagnosis for this admission?: Yes
[2018-09-16 19:15] LABS: ALANINE AMINOTRANSFERASE 22 U/L (9-52); ALBUMIN 3.5 g/dL (3.5-5.0); ALKALINE PHOSPHATASE 86 U/L (38-126); ANION GAP 8 (5-19); ASPARTATE AMINO TRANSFERASE 23 U/L (14-36); BILIRUBIN,DIRECT 0.3 mg/dL (0.0-0.4); BILIRUBIN,TOTAL 0.7 mg/dL (0.2-1.3); BLOOD UREA NITROGEN 24 mg/dL (7-20); CALCIUM 9.5 mg/dL (8.4-10.2); CARBON DIOXIDE 28 mmol/L (22-30); CHLORIDE 102 mmol/L (98-107); GLUCOSE 94 mg/dL (75-110); POTASSIUM 4.8 mmol/L (3.6-5.0); SODIUM 138.1 mmol/L (137-145); TOTAL PROTEIN 7.6 g/dL (6.3-8.2)
[2018-09-16] MEDS: CEFEPIME HCL 2 GM in DEXTROSE 5%-WATER 50 ML IV SCH (22:27)
[2018-09-16] MEDS: LEVOFLOXACIN 750 MG/D5W RTU 750 MG/150 ML RTUPB IV SCH (22:28)
[2018-09-17] MEDS: LEVOTHYROXINE SODIUM 0.1 MG TABLET PO SCH (05:34)
[2018-09-17] MEDS: LEVOTHYROXINE SODIUM 0.025 MG TABLET PO SCH (05:34)
[2018-09-17] MEDS: LOSARTAN POTASSIUM 50 MG TABLET PO SCH (11:24)
[2018-09-17] MEDS: APIXABAN 5 MG TABLET PO SCH ×2 (11:24→17:40)
[2018-09-17] MEDS: DILTIAZEM HCL 240 MG CAPSULE.CR PO SCH (11:24)
[2018-09-17] MEDS: AMLODIPINE BESYLATE 10 MG TABLET PO SCH (11:25)
[2018-09-17] MEDS: CEFEPIME HCL 2 GM in DEXTROSE 5%-WATER 50 ML IV SCH ×2 (11:25→21:21)
[2018-09-17] MEDS: FLUTICASONE/UMECLIDIN/VILANTER 100-62.5-25 MCG/DOSE IH SCH (11:26)
[2018-09-17 18:49] LABS: ABSOLUTE EOSINOPHILS # (AUTO) 0.1 10^3/uL (0.0-0.6); ABSOLUTE LYMPHOCYTES (AUTO) 0.6 10^3/uL (0.5-4.7); ABSOLUTE MONOCYTES (AUTO) 0.4 10^3/uL (0.1-1.4); ABSOLUTE NEUT (AUTO) 8.4 10^3/uL (1.7-8.2); BASOPHILS % (AUTO) 0.3 % (0-2); HEMATOCRIT 34.9 % (36.0-47.0); HEMOGLOBIN 11.1 g/dL (12.0-15.5); LYMPHOCYTES % (AUTO) 5.9 % (13-45); MEAN CORPUSCULAR HEMOGLOBIN 26.8 pg (27.0-33.4); MEAN CORPUSCULAR HGB CONC 31.7 g/dL (32.0-36.0); MEAN CORPUSCULAR VOLUME 84 fl (80-97); MONOCYTES % (AUTO) 4.6 % (3-13); PLATELET COUNT 244 10^3/uL (150-450); RED BLOOD COUNT 4.14 10^6/uL (3.72-5.28); RED CELL DISTRIBUTION WIDTH 17.1 % (11.5-14.0); SEGMENTED NEUTROPHILS % (AUTO) 88.2 % (42-78); TOTAL CELLS COUNTED % (AUTO) 100 %; WHITE BLOOD COUNT 9.6 10^3/uL (4.0-10.5)
[2018-09-17 19:14] LABS: ALANINE AMINOTRANSFERASE 13 U/L (9-52); ALBUMIN 3.9 g/dL (3.5-5.0); ALKALINE PHOSPHATASE 106 U/L (38-126); ANION GAP 6 (5-19); ASPARTATE AMINO TRANSFERASE 25 U/L (14-36); BILIRUBIN,DIRECT 0.4 mg/dL (0.0-0.4); BILIRUBIN,TOTAL 0.8 mg/dL (0.2-1.3); BLOOD UREA NITROGEN 29 mg/dL (7-20); CALCIUM 9.7 mg/dL (8.4-10.2); CARBON DIOXIDE 33 mmol/L (22-30); CHLORIDE 100 mmol/L (98-107); GLUCOSE 136 mg/dL (75-110); POTASSIUM 4.3 mmol/L (3.6-5.0); SODIUM 139.3 mmol/L (137-145); TOTAL PROTEIN 8.3 g/dL (6.3-8.2)
[2018-09-17] MEDS: LEVOFLOXACIN 750 MG/D5W RTU 750 MG/150 ML RTUPB IV SCH (21:23)
--- NOTE | 2018-09-17 22:00 | PDOC PROGRESS REPORT ---
Subjective Progress Note for:: 09/17/18 Subjective:: Patient was seen by the bedside, she is much better today, not requiring BiPAP anymore presently on oxygen via nasal cannula Reason For Visit: ACUTE EXACERBATION AND CHRONIC COPD Physical Exam Vital Signs: Temp Pulse Resp BP Pulse Ox 98.8 F 74 21 H 143/76 H 90 L 09/17/18 16:00 09/17/18 16:00 09/17/18 17:00 09/17/18 16:36 09/17/18 17:00 Pulse Oximeter Continuous Start: 09/16/18 12:30 Freq: RTQ4 Status: Complete Protocol: Document 09/16/18 20:00 [facility] (Rec: 09/16/18 20:31 LDA [email or web address]) Pulse Oximetry Assessment Equipment Usage Equipment Discontinued Continuous SpO2 Machine # xx Intake & Output 09/16/18 09/17/18 09/18/18 06:59 06:59 06:59 Intake Total 1142 680 50 Output Total 1139 575 Balance 9500 -727 -428 Weight 113.8 kg 114.6 kg General appearance: PRESENT: no acute distress Eye exam: PRESENT: PERRLA Respiratory exam: PRESENT: clear to auscultation abdulkadir Cardiovascular exam: PRESENT: +S1, +S2 GI/Abdominal exam: PRESENT: soft Neurological exam: PRESENT: alert Results Laboratory Results: 09/17/18 18:42 09/17/18 18:42 09/17/18 09/17/18 18:42 18:42 WBC 9.6 RBC 4.14 Hgb 11.1 L Hct 34.9 L MCV 84 MCH 26.8 L MCHC 31.7 L RDW 17.1 H Plt Count 244 Seg Neutrophils % 88.2 H Lymphocytes % 5.9 L Monocytes % 4.6 Eosinophils % 1.0 Basophils % 0.3 Absolute Neutrophils 8.4 H Absolute Lymphocytes 0.6 Absolute Monocytes 0.4 Absolute Eosinophils 0.1 Absolute Basophils 0.0 Sodium 139.3 Potassium 4.3 Chloride 100 Carbon Dioxide 33 H Anion Gap 6 BUN 29 H Creatinine 1.26 H Est GFR ( Amer) 51 L Est GFR (Non-Af Amer) 42 L Glucose 136 H Calcium 9.7 Total Bilirubin 0.8 AST 25 ALT 13 Alkaline Phosphatase 106 Total Protein 8.3 H Albumin 3.9 Impressions: Chest X-Ray 09/14/18 00:00 IMPRESSION: Stable findings with mild central pulmonary edema suspected. Chest CT 09/16/18 00:00 IMPRESSION: Left lower lobe pneumonia. Trace left pleural effusion Assessment & Plan - Diagnosis (1) Acute respiratory failure with hypoxia and hypercapnia Is this a current diagnosis for this admission?: Yes Plan: Continue oxygen therapy (2) Left lower lobe pneumonia Qualifiers: Pneumonia type: due to unspecified organism Qualified Code(s): J18.1 - Lobar pneumonia, unspecified organism Is this a current diagnosis for this admission?: Yes Plan: continue IV antibiotic, cefepime and Levaquin (3) Chronic obstructive pulmonary disease Qualifiers: COPD type: unspecified COPD Qualified Code(s): J44.9 - Chronic obstructive pulmonary disease, unspecified Is this a current diagnosis for this admission?: Yes (4) Pulmonary hypertension Is this a current diagnosis for this admission?: Yes
--- NOTE | 2018-09-17 22:07 | PDOC DISCHARGE SUMMARY ---
General - Admit/Disc Date/PCP Admission Date/Primary Care Provider: 09/16/18 12:30 GENOVEVA WILLIAM MD Discharge Date: 09/18/18 - Discharge Diagnosis (1) Acute respiratory failure with hypoxia and hypercapnia Is this a current diagnosis for this admission?: Yes (2) Left lower lobe pneumonia Is this a current diagnosis for this admission?: Yes (3) Chronic obstructive pulmonary disease Is this a current diagnosis for this admission?: Yes (4) Pulmonary hypertension Is this a current diagnosis for this admission?: Yes - Additional Information Resuscitation Status: Full Code Prescriptions: Levofloxacin [Levaquin 750 mg Tablet] 750 mg PO DAILY #10 tab Home Medications: Albuterol Sulfate [Proair HFA Inhalation Aerosol 8.5 gm MDI] 1 puff IH Q4HP PRN 09/14/18 Amlodipine Besylate [Norvasc 10 mg Tablet] 10 mg PO DAILY 09/14/18 Apixaban [Eliquis 5 mg Tablet] 5 mg PO BID 09/14/18 Diltiazem HCl [Cartia Xt] 240 mg PO DAILY 09/14/18 Fluticasone/Umeclidin/Vilanter [Trelegy 100-62.5-25 Mcg Ellipta 14 Dose/Dpi] 1 each IH DAILY 09/14/18 Levothyroxine Sodium [Synthroid] 125 mcg PO Q6AM 09/14/18 Losartan Potassium [Cozaar 100 mg Tablet] 100 mg PO DAILY 09/14/18 Levofloxacin [Levaquin 750 mg Tablet] 750 mg PO DAILY #10 tab 09/17/18 History of Present Illness History of Present Illness: Patient was admitted initially for observation with the intent to arrange for oxygen therapy. Patient had difficulty maintaining adequate oxygen saturation, yesterday ABG was drawn it demonstrated acute hypercapnic respiratory failure, initially it was felt that the elevated CO2 was from administration of high volume oxygen therapy, she has COPD with severe pulmonary hypertension, hypoxic respiratory drive is needed to maintain adequate ventilation in this patient. Patient continued to require noninvasive positive pressure ventilation, because of this CT chest was ordered, it demonstrated right lower lobe consolidation consistent with pneumonia. She was initially brought in for observation the patient status was changed to inpatient she be transferred to ICU because she remained acidotic, she may require mechanical ventilation Hospital Course Hospital Course: Patient was admitted for the management of pneumonia with a background of acute hypoxemic respiratory failure, she was treated with IV Levaquin and cefepime, patient did improve significantly. She continues to require oxygen via nasal cannula, she will be discharged home on p.o. Levaquin 750 mg p.o. daily with oxygen therapy at 2 L/min Physical Exam Vital Signs: Temp Pulse Resp BP Pulse Ox 98.8 F 74 21 H 143/76 H 90 L 09/17/18 16:00 09/17/18 16:00 09/17/18 17:00 09/17/18 16:36 09/17/18 17:00 Pulse Oximeter Continuous Start: 09/16/18 12:30 Freq: RTQ4 Status: Complete Protocol: Document 09/16/18 20:00 LDA (Rec: 09/16/18 20:31 LDA [email or web address]) Pulse Oximetry Assessment Equipment Usage Equipment Discontinued Continuous SpO2 Machine # xx Intake & Output 09/16/18 09/17/18 09/18/18 06:59 06:59 06:59 Intake Total 1142 680 50 Output Total 1135 575 Balance 1142 -455 -525 Weight 113.8 kg 114.6 kg General appearance: PRESENT: no acute distress, well-developed, well-nourished Head exam: PRESENT: atraumatic, normocephalic Eye exam: PRESENT: conjunctiva pink, EOMI, PERRLA Ear exam: PRESENT: normal external ear exam Mouth exam: PRESENT: moist, tongue midline Neck exam: PRESENT: full ROM Respiratory exam: PRESENT: clear to auscultation abdulkadir Cardiovascular exam: PRESENT: RRR, +S1, +S2 Vascular exam: PRESENT: normal capillary refill GI/Abdominal exam: PRESENT: normal bowel sounds, soft Rectal exam: PRESENT: deferred Neurological exam: PRESENT: alert, awake, oriented to person, oriented to place, oriented to time, oriented to situation, CN II-XII grossly intact Psychiatric exam: PRESENT: appropriate affect, normal mood Skin exam: PRESENT: dry, intact, warm Results Laboratory Results: 09/17/18 18:42 09/17/18 18:42 09/17/18 09/17/18 18:42 18:42 WBC 9.6 RBC 4.14 Hgb 11.1 L Hct 34.9 L MCV 84 MCH 26.8 L MCHC 31.7 L RDW 17.1 H Plt Count 244 Seg Neutrophils % 88.2 H Lymphocytes % 5.9 L Monocytes % 4.6 Eosinophils % 1.0 Basophils % 0.3 Absolute Neutrophils 8.4 H Absolute Lymphocytes 0.6 Absolute Monocytes 0.4 Absolute Eosinophils 0.1 Absolute Basophils 0.0 Sodium 139.3 Potassium 4.3 Chloride 100 Carbon Dioxide 33 H Anion Gap 6 BUN 29 H Creatinine 1.26 H Est GFR ( Amer) 51 L Est GFR (Non-Af Amer) 42 L Glucose 136 H Calcium 9.7 Total Bilirubin 0.8 AST 25 ALT 13 Alkaline Phosphatase 106 Total Protein 8.3 H Albumin 3.9 Impressions: Chest X-Ray 09/14/18 00:00 IMPRESSION: Stable findings with mild central pulmonary edema suspected. Chest CT 09/16/18 00:00 IMPRESSION: Left lower lobe pneumonia. Trace left pleural effusion Qualifiers - * PATIENT BEING DISCHARGED WITH ANY OF THE FOLLOWING DIAGNOSIS: No
[2018-09-18] MEDS: ACETAMINOPHEN 325 MG TABLET PO PRN (00:26)
[2018-09-18] MEDS: LEVOTHYROXINE SODIUM 0.025 MG TABLET PO SCH (05:04)
[2018-09-18] MEDS: LEVOTHYROXINE SODIUM 0.1 MG TABLET PO SCH (05:04)
[2018-09-18 08:28] VITALS: BP 145/72
[2018-09-18] MEDS: APIXABAN 5 MG TABLET PO SCH (09:44)
[2018-09-18] MEDS: LOSARTAN POTASSIUM 50 MG TABLET PO SCH (09:44)
[2018-09-18] MEDS: CEFEPIME HCL 2 GM in DEXTROSE 5%-WATER 50 ML IV SCH (09:45)
[2018-09-18] MEDS: DILTIAZEM HCL 240 MG CAPSULE.CR PO SCH (09:45)
[2018-09-18] MEDS: FLUTICASONE/UMECLIDIN/VILANTER 100-62.5-25 MCG/DOSE IH SCH (09:46)
[2018-09-18] MEDS: AMLODIPINE BESYLATE 10 MG TABLET PO SCH (09:46)
== END 2018-09-18 14:20 | disposition home or self-care (01) | DRG 193 ==
LOC: 4S 18:57 → OBSVTOIN 09-16 12:30 → ICU 09-16 18:50
PROVIDERS: ADMIT Internal Medicine; ATTEND Internal Medicine
PROC: 5A09457 Assistance with Respiratory Ventilation, 24-96 Consecutive Hours, Continuous Positive Airway Pressure (ICD-10-PCS; principal; 2018-09-14)
DX: J18.9 Pneumonia, unspecified organism (principal); J96.22 Acute and chronic respiratory failure with hypercapnia; J96.21 Acute and chronic respiratory failure with hypoxia; J44.0 Chronic obstructive pulmonary disease with (acute) lower respiratory infection; I27.20 Pulmonary hypertension, unspecified; I48.91 Unspecified atrial fibrillation; I10 Essential (primary) hypertension; E03.9 Hypothyroidism, unspecified; M19.90 Unspecified osteoarthritis, unspecified site; Z90.49 Acquired absence of other specified parts of digestive tract; Z87.891 Personal history of nicotine dependence; Z88.8 Allergy status to other drugs, medicaments and biological substances; Z79.51 Long term (current) use of inhaled steroids; Z79.01 Long term (current) use of anticoagulants; Z99.81 Dependence on supplemental oxygen
CPT/HCPCS: 36415; 36600; 71045; 71250; 80048; 80053; 80076; 82803; 85025; 85027; 94660; G0378; G0379; J0692; J1940; J1956; J3490

== ENCOUNTER → 2019-01-29 | Outpatient (CLI) | payer MEDICARE, OTHER ==
--- NOTE | 2019-01-29 10:12 | RADIOLOGY REPORT (SQ) ---
EXAM DESCRIPTION: KNEE BILATERAL 1-2 VIEWS COMPLETED DATE/TIME: 01/29/2019 9:56 am REASON FOR STUDY: (M17.0)BILATERAL PRIMARY OSTEOARTHRITIS OF KNEE M17.0 BILATERAL PRIMARY OSTEOARTH RITIS OF KNEE COMPARISON: None. NUMBER OF VIEWS: Two views. TECHNIQUE: AP and lateral standing bilateral knees. LIMITATIONS: None. FINDINGS: MINERALIZATION: Normal. RIGHT KNEE BONES: No acute fracture. No worrisome bone lesions. MEDIAL COMPARTMENT: No significant osteophytes. There is joint space narrowing. No chondrocalcino sis. LATERAL COMPARTMENT: No significant osteophytes. Joint space narrowing. No chondrocalcinosis. PATELLOFEMORAL COMPARTMENT: Prominent osteophytes superiorly. Joint space narrowing. No chondroc alcinosis. LEFT KNEE BONES: Subchondral defect in the medial femoral condyle. MEDIAL COMPARTMENT: Small osteophytes. Joint space narrowing. No chondrocalcinosis. LATERAL COMPARTMENT: No significant osteophytes. Mild joint space narrowing. No chondrocalcinosis . PATELLOFEMORAL COMPARTMENT: Prominent osteophytes superiorly. Marked joint space narrowing. No c hondrocalcinosis. IMPRESSION: Advanced bilateral osteoarthritic changes involving all 3 compartments. No joint effusi ons. Osteochondral defect involving the left medial femoral condyle. TECHNICAL DOCUMENTATION: JOB ID: [id number] [employer]- All Rights Reserved Reading location - IP/workstation name: [email or web address]
== END ==
LOC: RAD 08:57
PROVIDERS: ATTEND Clinical Nurse Specialist Adult Health
DX: M17.0 Bilateral primary osteoarthritis of knee (principal)

== ENCOUNTER → 2019-08-13 | Outpatient (CLI) | payer OTHER ==
--- NOTE | 2019-08-13 15:35 | WOMENS IMAGING REPORT ---
EXAM DESCRIPTION: BILAT SCREENING MAMMO W/CAD COMPLETED DATE/TIME: 08/13/2019 11:56 am REASON FOR STUDY: Z12.31 ENCOUNTER FOR SCREENING MAMMOGRAM FOR MALIGNANT NEOPLASM OF BREAST Z12.31 ENCNTR SCREEN MAMMOGRAM FOR MALIGNANT NEOPLASM OF MUNA COMPARISON: 2014 and subsequent. EXAM PARAMETERS: Standard craniocaudal and mediolateral oblique views of each breast recorded using digital acquisition. Read with the assistance of CAD. .[facility] - [employer] Sales Representative Version 9.2 LIMITATIONS: MLO views are limited due to positioning difficulties. Best images possible. FINDINGS: Findings present which are benign by mammographic criteria. No suspicious masses, calcifi cations or architectural distortion. Pertinent benign findings: Scattered benign calcifications. At least 1 left biopsy clip. Benign mammographic findings may include one or more of the following: Smooth masses, popcorn/rim/co arse calcifications, asymmetries, post-procedure changes, and lesions with long-standing stability. IMPRESSION: BENIGN MAMMOGRAPHIC FINDINGS. BIRADS 2 BREAST DENSITY: b. There are scattered areas of fibroglandular density. BIRAD: ASSESSMENT: 2 BENIGN FINDING(S) RECOMMENDATION: ROUTINE SCREENING COMMENT: The patient has been notified of the results by letter per MQSA requirements. Additional no tification policies are in place for contacting patient with suspicious or incomplete findings. Quality ID #[id number]: The [employer] recommends an annual screening mammogram for women aged 40 years or over. This facility utilizes a reminder system to ensure that all patients receive reminder letters, and/or direct phone calls for appointments. This includes reminders for routine scr eening mammograms, diagnostic mammograms, or other Breast Imaging Interventions when appropriate. Th is patient will be placed in the appropriate reminder system. TECHNICAL DOCUMENTATION: FINDING NUMBER: (1) ASSESSMENT: (1) JOB ID: [id number] 2010 [employer]- All Rights Reserved Reading location - IP/workstation name: [email or web address]
== END ==
LOC: RAD 11:29
PROVIDERS: ATTEND Clinical Nurse Specialist Adult Health
DX: Z12.31 Encounter for screening mammogram for malignant neoplasm of breast (principal)
CPT/HCPCS: 77067